=== PATIENT | female | born 1970 | race Caucasian/White ===

== ENCOUNTER 2020-10-30 15:25 | Emergency (ER) | payer BC, SELFPAY ==
[2020-10-30 15:27] VITALS: BP 98/74; PULSE 160; RESP 16; TEMP 36.6; O2SAT 98; BMI 32.1
[2020-10-30 15:30] VITALS: PULSE 128
--- NOTE | 2020-10-30 15:36 | NURSING ---
NO OLD EKGS
[2020-10-30] MEDS: Adenosine 6 MG/2 ML Syringe IV (15:40)
[2020-10-30] MEDS: 0.9% Normal Saline 1,000 ML 150 ML IV (15:40)
--- NOTE | 2020-10-30 15:42 | RAD_ITS ---
STUDY: X-RAY CHEST REASON FOR EXAM: Female, 50 years old. TACHYCARDIA TECHNIQUE: Frontal view COMPARISON: None. FINDINGS: The lungs are clear and expanded. There is no demonstrated pleural abnormality. Normal size heart. Normal mediastinum and rodrigo. Normal visualized pulmonary arteries. Normal visualized aortic arch and descending thoracic aorta. Normal visualized thoracic spine. Normal visualized ribs, clavicles, and shoulders. There is no demonstrated abnormality of the visualized soft tissue structures of the upper abdomen. RAD/Chest 1 View (Portable) IMPRESSION: Normal x-ray examination of the chest. Electronically Signed: Jairon Peck DO at 16:12 EST Tel [phone], Service support ,
--- NOTE | 2020-10-30 15:43 | EKG12_ITS ---
Test Reason : Blood Pressure : / mmHG Vent. Rate : 135 BPM Atrial Rate : 135 BPM P-R Int : 146 ms QRS Dur : 078 ms QT Int : 308 ms P-R-T Axes : 080 -42 056 degrees QTc Int : 462 ms Sinus tachycardia with occasional Premature ventricular complexes Left axis deviation Nonspecific ST abnormality Abnormal ECG Confirmed by SAMUEL MCCORMICK, VALENTE ([id number]), editor dictionary SIENNA XIONG ([id number]) on 11/05/2020 10:01:20 AM Referred By: AUBREY Confirmed By:RY BAKER MD
--- NOTE | 2020-10-30 15:43 | ED.VISSUMM ---
- ER Visit Summary Date of Service: 10/30/20 Chief Complaint: [Tachycardia] History of Present Illness: The patient is a 50 F [presents to the emergency department complaint tachycardia this around 12:30 PM today. Patient states that it came on suddenly. Patient states that she had similar episode about 15 years ago that she related to anxiety and had to go to the ER for it. Patient does not know she has a history of SVT. She denies any chest pain or significant shortness of breath. She denies recent travel or surgery. She denies recent illness. Patient otherwise has no medical history.] Physical Examination: [HEENT-PERRLA, EOMI. Cranial nerves II through XII grossly intact. TMs clear. Mucous membranes moist. No adenopathy. Cardiovascular-regular and tachycardic with a rate of 190. No murmurs auscultated. Lungs-clear to auscultation, chest wall stable without crepitus or subcu emphysema Abdomen-normoactive bowel sounds, soft, nontender, no rebound or rigidity, no peritoneal signs. Extremities-intact ?4, normal range of motion, normal pulses, atraumatic] Test Results: [EKG obtained showed SVT narrow complex with a rate of [address] changes. After conversion with adenosine her repeat EKG showed a sinus rhythm with a ventricular rate of 135 bpm with again with nonspecific ST changes noted and occasional PVC.] Emergency Department Course and Treatment: [ Established on arrival. EKG obtained which showed an SVT. Patient was given adenosine 6 mg IV and she converted to a sinus rhythm with a rate in the 120s.] CBC with differential obtained showed a white count 6.3, hemoglobin 14, hematocrit 43, placed 286. Chemistries unremarkable other than a slight depressed potassium of 3.2 for which I did give him 40 mEq of potassium chloride. Troponin was 0.039. Chest x-ray interpreted by myself as nothing acute. No evidence of pneumothorax and no evidence of infiltrate. Radiology in agreement. Treatment Plan: [Case was discussed with viscose department worker on-call who recommended metoprolol succinate 25 mg daily and follow-up with cardiology as outpatient.] Disposition: [Discharged home in stable condition. Patient advised to return if chest pain, increasing shortness of breath, persistent tachycardia, or condition should worsen anyway.] Impression: [Supraventricular tachycardia] This note was generated with Myfacepageation software. It may contain incorrect words, spelling, and punctuation that were not noted in review of the chart prior to signing
--- NOTE | 2020-10-30 15:49 | EKG12_ITS ---
Test Reason : Blood Pressure : / mmHG Vent. Rate : 187 BPM Atrial Rate : 061 BPM P-R Int : 000 ms QRS Dur : 080 ms QT Int : 262 ms P-R-T Axes : 000 -62 086 degrees QTc Int : 462 ms Supraventricular tachycardia Left axis deviation Abnormal ECG Confirmed by SAMUEL MCCORMICK, VALENTE ([id number]), editor department SIENNA XIONG ([id number]) on 11/05/2020 10:01:42 AM Referred By: AUBREY Confirmed By:RY BAKER MD
[2020-10-30 15:50] LABS: Absolute Lymphocyte Count 1.84 X10^3/uL (0.83-4.51); Absolute Neutrophil Count 3.7 X10^3/uL (2.0-7.7); Basophil# 0.04 X10^3/uL; Basophil% 0.6 % (0-1); Eosinophil# 0.18 X10^3/uL; Eosinophils% 2.8 % (0-5); Hematocrit 43.3 % (37-47); Hemoglobin 14.3 g/dL (12.0-15.0); Lymphocyte # 1.84 X10^3/ul (4.0); Mean Corpuscular Hgb 30.8 pg (27.0-32.0); Mean Corpuscular Volume 93.3 fL (81-99); Monocyte# 0.55 X10^3/uL; Monocyte% 8.7 % (0-10); NRBC Flagged by Analyzer 0 % (0-5); Neutrophil # 3.71 X10^3/uL (2.7-7.7); Neutrophil % 58.6 % (47-70); Platelet Count 286 K/mm3 (150-450); RBC Distribution Width SD 40.8 fl (35.1-43.9); Red Blood Count 4.64 M/mm3 (4.2-5.4); White Blood Count 6.3 K/mm3 (4.4-11.0)
[2020-10-30 16:07] LABS: Anion Gap 4 (5-15); BUN 13 mg/dL (7-18); BUN/Creat Ratio 11.6 RATIO (10-20); Calcium,Total 8.9 mg/dL (8.5-10.1); Chloride 107 mmol/L (98-107); Creatinine, Serum 1.12 mg/dL (0.55-1.02); EST Glomerular Filtration Rate 54 mL/min (>60); Est Glom Filt Rate - Afr Amer 66 mL/min (>60); Estimated Creatinine Clearance 44.34 ml/min; Glucose 155 mg/dL (74-106); Potassium 3.2 mmol/L (3.5-5.1); Sodium Level 142 mmol/L (136-145)
--- NOTE | 2020-10-30 16:25 | ED.DEP ---
ED Disposition - Plan for ED Patient: Instructions: ED Tachycardia: PAT Prescriptions: Metoprolol Succinate 25 mg PO DAILY #30 tab.er.24h Prescription Printed Referrals: Lyle Morales MD [STAFF PHYSICIAN] - 3-5 Days
[2020-10-30 16:41] VITALS: BP 110/67; PULSE 99; RESP 20; O2SAT 96
== END 2020-10-30 16:42 | disposition home or self-care (01) ==
LOC: ED 16:25
PROVIDERS: Emergency Provider Emergency Medicine; PCP Family Medicine
DX: I47.1 Supraventricular tachycardia (principal)
CPT/HCPCS: 71045; 80048; 84484; 85025; 93005; 96361; 96374; 99284; J7030; A4216; J0153

== ENCOUNTER → 2020-11-18 09:36 | Outpatient (CLI) | payer BC, SELFPAY ==
[2020-11-18 07:42] VITALS: BMI 31.9
[2020-11-18 10:59] LABS: Anion Gap 3 (5-15); BUN 12 mg/dL (7-18); BUN/Creat Ratio 13.7 RATIO (10-20); Chloride 104 mmol/L (98-107); Creatinine, Serum 0.88 mg/dL (0.55-1.02); EST Glomerular Filtration Rate 72 mL/min (>60); Est Glom Filt Rate - Afr Amer 87 mL/min (>60); Glucose 80 mg/dL (74-106); Sodium Level 139 mmol/L (136-145); Thyroid Stim Hormone (TSH) 2.16 uIU/mL (0.358-3.74)
== END ==
PROVIDERS: PCP Family Medicine; Referring Provider Internal Medicine Cardiovascular Disease; Visit Provider Internal Medicine Cardiovascular Disease
DX: Z86.79 Personal history of other diseases of the circulatory system (principal)
CPT/HCPCS: 36415; 80048; 84443

== ENCOUNTER → 2020-12-01 14:53 | Outpatient (CLI) | payer BC, SELFPAY ==
[2020-11-18 07:42] VITALS: BMI 31.9
--- NOTE | 2020-12-01 14:54 | ECHOD_ITS ---
Version 2 Reason For Study: ARRHYTHMIA Procedure This was a 2D Doppler, Color Flow transthoracic echocardiogram. Exam performed in department. Left Ventricle Normal LV size. Left ventricular systolic function is normal. The estimated ejection fraction is 55 %. Normal diastology for age. No regional wall motion abnormalities noted. Right Ventricle Normal RV size. Normal systolic function. Atria Normal left atrium. Normal right atrium. Mitral Valve Normal mitral valve. Mild (1+) eccentric mitral valve insufficiency. Tricuspid Valve Normal tricuspid valve. Mild (1+) tricuspid valve insufficiency. Pulmonary artery systolic pressure is 26 mmHg. Aortic Valve Normal aortic valve. Trisinus/trileaflet aortic valve. Pulmonic Valve Normal pulmonic valve. Great Vessels Normal aortic root. The pulmonary artery is normal size. Normal inferior vena cava. Pericardium/Pleural No pericardial effusion. MMode/2D Measurements & Calculations LVIDd: 4.4 cm IVSd: 0.64 cm Ao root diam: 2.8 cm LVIDs: 2.9 cm LVPWd: 0.62 cm RVDd: 3.1 cm FS: 35.2 % LAV(MOD-bp): 47.5 ml EDV(MOD-sp4): 73.2 ml EDV(MOD-sp2): 84.0 ml LAV(MOD-bp) Indexed: 26.6 ml/m2 ESV(MOD-sp4): 32.9 ml EF(MOD-sp2): 56.2 % LAV(MOD-sp2): 50.4 ml EF(MOD-sp4): 55.1 % LAV(MOD-sp4): 39.6 ml SV(MOD-sp4): 40.3 ml SV(MOD-sp2): 47.2 ml LA A4 area: 15.7 cm2 LA dimension(2D): 3.1 cm RA A4 area: 9.3 cm2 Time Measurements MV dec time: 0.19 sec Doppler Measurements & Calculations MV E max willi: 91.4 cm/sec Lat Peak E' Willi: 8.6 cm/sec Med Peak E' Willi: 9.3 cm/sec MV A max willi: 68.4 cm/sec E/E' lat: 10.7 E/E' med: 9.8 MV E/A: 1.3 Ao V2 max: 131.0 cm/sec LV V1 max: 70.0 cm/sec PA V2 max: 78.5 cm/sec Ao max P.9 mmHg LV V1 max P.0 mmHg TR max willi: 236.5 cm/sec TR max P.4 mmHg Interpretation Summary Normal LV size. Left ventricular systolic function is normal. The estimated ejection fraction is 55 %. Normal diastology for age. Ordering Physician: Lyle Morales Referring Physician: NATALI HERNANDEZ Performed By: Itzel Coy, DENNYS, RVT
== END ==
PROVIDERS: PCP Family Medicine; Referring Provider Internal Medicine Cardiovascular Disease; Visit Provider Internal Medicine Cardiovascular Disease
DX: I49.8 Other specified cardiac arrhythmias (principal); Z86.79 Personal history of other diseases of the circulatory system
CPT/HCPCS: 93306

== ENCOUNTER → 2021-05-07 11:45 | Outpatient (CLI) | payer BC, SELFPAY ==
[2021-03-30 09:24] VITALS: BMI 31.9
--- NOTE | 2021-05-07 11:50 | RAD_ITS ---
STUDY: X-RAY - LUMBAR SPINE REASON FOR EXAM: Female, 51 years old. BACK PAIN TECHNIQUE: 3 view(s) of the lumbar spine were obtained. COMPARISON: None FINDINGS: Lumbar spine is intact and aligned with mild degenerative changes. These are age appropriate. SI joints are normal. Mineralization is normal. RAD/Lumbar Spine 2 or 3 Views IMPRESSION: Unremarkable age-appropriate lumbar spine. Electronically Signed: Samuel Mckoy MD at 20:02 EDT Tel , Service support ,
== END ==
PROVIDERS: PCP Family Medicine
DX: M54.16 Radiculopathy, lumbar region (principal)
CPT/HCPCS: 72100

== ENCOUNTER 2021-06-24 17:00 | Outpatient (RCR) | payer BC, SELFPAY ==
[2021-03-30 09:24] VITALS: BMI 31.9
--- NOTE | 2021-06-15 07:46 | HP.PTEVAL_ITS ---
Patient's Visit Information ALLA KIMBALL is a 51 year old F referred to Physical Therapy by Dr. Jeronimo Howell MD with a diagnosis of Lumbar Pain. Date of Evaluation: 06/15/21 Physical Therapist: Chasity Montilla DPT - Visit Plan Frequency: 2x /Week Duration: 4 Weeks Plan: Focus on neutral spine- core strength/stabilization. HEP Given IE: TA contraction, bridge, hip adduction with ball, hip abduction with GTB, postural education - Subjective Patient reports that she has had back pain since she was 17 years old- started after traveling and stretched across the bed and felt a pop now it comes and goes- masks with Tylenol and is tired of dealing with it. Wants to get some exercises to increase core strength and decrease pain. She was told DDD started when she was younger- has had x-rays and showed typical degeneration. She now has it more consistently. She reports that normally its on the left side but today its across the whole low back area. She works for [employer] so she is sitting and then getting up/down- no lifting at work. Sits most of the day at a computer/phone. Worst: 5/10 Agg:sitting for long periods of time or standing for long periods of time. Feels like everything just knots up. Describes the p ain as dull and achy. Does have radiating pain down the left LE- travels to the knee. Desribes N/T into the leg- but not to the toes. No episodes of knee buckling or giving out. Eases: tries to stretch- knees to chest- which helps a little bit. Best: 0/10. Sleep: disturbed so she has to flip side to side. No loss or change in bowel or bladder. Does not exercise on a normal basis- hopes this is going to be her jump start. No injections, chiropractor, massage therapy. PMHX/Meds: see scanned in chart. - Objective Posture: FH, RS-does sit at the edge of the chair to promote better posture- can correct with verbal and tactile cues but does not maintain. Gait: good arm swing and trunk rotation. ROM: WFL in lumbar and LE without pain. SLS: weight shift but requires UE A- moderate pelvic drop bilaterally. HR/TR: able with UE A. Palpation: tender to PA glides in lumbar spine, tender along gluts bilateral. Strength: Core: fair, Scap: fair, Hip: 4/5 throughout, Knee: 5/5, Ankle: 5/5. Special Test: Slump: negative, Dural Signs: negative, Pelvic Alignment: WFL, KRISHNA: negative- Extension: makes symptoms worse, flexion: no change in symptoms - Balance/Special Test Scores Oswestry Low Back Score: 6 - Goals Goal 1:: Patient will be I with HEP and progression Goal Time Frame: 4-6 Weeks Goal 2:: Patient will maintain proper posture t/o tx session to demo increased core s/s. Goal Time Frame: 4-6 Weeks Goal 3:: Patient will report no more than 2/10 pain for 1 week Goal Time Frame: 4-6 Weeks Goal 4:: Patient will have no radiating s/s down the left LE Goal Time Frame: 4-6 Weeks - Rehabilitation Potential Physical Therapy Diagnosis: Patient presents with hypomobility- she has decreased LE and core strength/stabilization, flexibility and muscular endurance leading to poor posture and increased pain with ADL's. Rehabilitation Potential: Fair - Anticipated Interventions Patient/Client Instruction: Educate patient on: Benefits of Fitness Program Therapeutic Exercise to Include: Strength training, Endurance training, Balance training, Body mechanics, Postural training, Flexibilty training, Neuromotor development, Dynamic Lumbar Stabilization, Mandie Exercises, Scapular Strength/Stabilization For the Purpose of:: To improve muscle performance and motor function TENS: Yes Cryotherapy (ice pack, ice massage): Yes Thermo therapy (hot pack): Yes Ultrasound (thermal/non thermal): Yes Thank you for the opportunity to evaluate your patient. For Medicare and Medicare HMO plans, please review the plan of care and approve it. It will need to be FAXED BACK to us at [phone] for Medicare purposes. For Medicare only, by signing this I certify the plan of care. Please let me know if there are questions or concerns regarding this plan of care. Physician Signature: Date:
--- NOTE | 2021-09-06 08:11 | HP.PT.NRP ---
ALLA KIMBALL was seen in my office for initial evaluation on 06/15/21. The following Plan of Care was established for this patient: Initial Frequency: 2x /Week Initial Duration: 4 Weeks Patient/Client Instruction: Educate patient on: Benefits of Fitness Program Therapeutic Exercise to Include: Strength training, Endurance training, Balance training, Body mechanics, Postural training, Flexibilty training, Neuromotor development, Dynamic Lumbar Stabilization, Mandie Exercises, Scapular Strength/Stabilization For the Purpose of:: To improve muscle performance and motor function TENS: Yes Cryotherapy (ice pack, ice massage): Yes Thermo therapy (hot pack): Yes Ultrasound (thermal/non thermal): Yes This patient was last seen in our office . Pertinent comments regarding their Physical therapy will appear below: Patient has not attended PT in over 4 weeks and is appropriate for discharge- return to MD for further evaluation as needed. At this point I will be discontinuing this patient from physical therapy. I would be happy to see this patient again in the future if found appropriate by the physician. Thank you! Chasity Montilla DPT Balance/Gait/Functional tests - Balance/Special Test Scores Oswestry Low Back Score: 6
== END 2021-06-24 19:00 | disposition home or self-care (01) ==
LOC: PT 17:00
PROVIDERS: PCP Family Medicine; Referring Provider Family Medicine; Visit Provider Family Medicine
DX: M54.5 Low back pain (principal)
CPT/HCPCS: 97110; 97162

== ENCOUNTER 2021-12-15 07:16 | Outpatient (CLI) | payer BC, SELFPAY ==
--- NOTE | 2021-12-15 07:20 | RAD_ITS ---
EXAM: XR CHEST, 2 VIEWS : 1970 CLINICAL INDICATION: chest pain TECHNIQUE: Frontal and lateral views of the chest. This report was created using [employer] report generation technology. COMPARISON: 10/30/2020 FINDINGS: LUNGS AND PLEURAL SPACES: On the lateral view there is patchy airspace disease which may be within the lingula. No effusions are identified. No pneumothorax. HEART: Unremarkable. Cardiac silhouette not enlarged. MEDIASTINUM: Central airways and mediastinal contour are unremarkable. BONES/JOINTS: Unremarkable. SOFT TISSUES: Unremarkable. RAD/Chest PA and Lateral IMPRESSION: Airspace disease seen in the lateral view anteriorly which may be within the lingula. No effusions are identified. at 0208 Reported and signed by: Kushal Barnard MD Electronically Signed: Kushal Barnard MD at 2:07 EST ,
[2021-12-15 10:30] LABS: Absolute Lymphocyte Count 1.23 X10^3/uL (0.83-4.51); Absolute Neutrophil Count 1.8 X10^3/uL (2.0-7.7); Basophil# 0.04 X10^3/uL; Basophil% 1.1 % (0-1); Eosinophil# 0.15 X10^3/uL; Eosinophils% 4.1 % (0-5); Hematocrit 40.9 % (37-47); Hemoglobin 13.8 g/dL (12.0-15.0); Lymphocyte # 1.23 X10^3/ul (0.83-4.51); Mean Corp Hgb Conc 33.7 g/dL (32-36); Mean Corpuscular Hgb 30.9 pg (27.0-32.0); Mean Corpuscular Volume 91.5 fL (81-99); Mean Platelet Vol. 10.5 fl (6.2-12.0); Monocyte# 0.38 X10^3/uL; Monocyte% 10.5 % (0-10); NRBC Flagged by Analyzer 0 % (0-5); Neutrophil # 1.82 X10^3/uL (2.7-7.7); Neutrophil % 50.3 % (47-70); Platelet Count 265 K/mm3 (150-450); RBC Distribution Width CV 12.1 % (11.6-14.6); RBC Distribution Width SD 40.4 fl (35.1-43.9); Red Blood Count 4.47 M/mm3 (4.2-5.4); White Blood Count 3.6 K/mm3 (4.4-11.0)
[2021-12-15 11:07] LABS: Anion Gap 6 (5-15); BUN 12 mg/dL (7-18); Calcium,Total 9.2 mg/dL (8.5-10.1); Chloride 104 mmol/L (98-107); Creatinine, Serum 0.86 mg/dL (0.55-1.02); EST Glomerular Filtration Rate 73 mL/min (>60); Est Glom Filt Rate - Afr Amer 89 mL/min (>60); Glucose 81 mg/dL (74-106); Potassium 3.8 mmol/L (3.5-5.1); Sodium Level 138 mmol/L (136-145)
== END 2021-12-15 23:59 | disposition home or self-care (01) ==
LOC: MTLAB 07:18
PROVIDERS: PCP Family Medicine; Referring Provider Internal Medicine Cardiovascular Disease; Visit Provider Internal Medicine Cardiovascular Disease
DX: Z86.79 Personal history of other diseases of the circulatory system (principal)
CPT/HCPCS: 36415; 71046; 80048; 85025

== ENCOUNTER 2021-12-23 07:28 | Day surgery (SDC) | payer BC, SELFPAY ==
[2021-12-22 13:20] VITALS: BMI 31.8
--- NOTE | 2021-12-23 11:07 | PCM.OP.BLANK ---
Operative Report Date of Procedure: 12/23/21 The patient underwent EP testing today for narrow complex tachycardia. There was normal SA, AV and infranodal conduction. There was AV kendrick jump and echo beat. There is no inducible tachycardia. There is no preexcitation. There is decremental retrograde conduction. During Isuprel at 3 there is no inducible tachycardia however during 5ugm there was a single induction of a short RP tachycardia with a VA interval at the his of 50 ms. Ventricular pacing resulted in termination. The transition zone required multiple pacing beats thus the most likely diagnosis, based upon onset being dependent upon a long AH, is typical AV kendrick reentrant tachycardia. Detailed mapping was completed of the AV junction in the coronary sinus os region as well as the triangle of Colon. Multiple radiofrequency ablations were delivered near the posterior region of the coronary sinus os with occasional junctional beats. There is no AV or VA block. Post ablation with and without Isuprel there is normal SA, AV, HV, and no inducible tachycardia. In summary patient had successful slow pathway ablation for management of typical AV node reentrant tachycardia. Primary limitation is that the preprocedure induction of the tachycardia was only 1 time despite multiple testing. Thus the assessment of the efficacy of the ablation lesions by doing post procedure testing is limited. Plan is to discharge home with clinical follow-up.
== END 2021-12-23 23:59 | disposition home or self-care (01) ==
LOC: CLSP 07:32
PROVIDERS: PCP Family Medicine; Referring Provider Internal Medicine Cardiovascular Disease; Visit Provider Internal Medicine Cardiovascular Disease
DX: R00.0 Tachycardia, unspecified (principal); R00.2 Palpitations; E66.9 Obesity, unspecified; F41.1 Generalized anxiety disorder; Z79.899 Other long term (current) drug therapy
CPT/HCPCS: 93609; 93653; 99152; 99153; C1730; C1733; C1894

== ENCOUNTER → 2022-07-21 | Outpatient (CLI) | payer BC, SELFPAY ==
[2022-07-21 10:38] LABS: AST(SGOT) 22 U/L (15-37); Alanine Aminotransfer ALT/SGPT 24 U/L (13-56); Albumin, Serum 3.6 g/dL (3.2-5.0); Alkaline Phosphatase 59 U/L (45-117); Anion Gap 6 (5-15); BUN 15 mg/dL (7-18); BUN/Creat Ratio 15.5 RATIO (10-20); Calcium,Total 9.3 mg/dL (8.5-10.1); Chloride 103 mmol/L (98-107); Cholesterol 191 mg/dL (200); Creatinine, Serum 0.97 mg/dL (0.55-1.02); EST Glomerular Filtration Rate 64 mL/min (>60); Est Glom Filt Rate - Afr Amer 77 mL/min (>60); Globulin 3.6 g/dL (2.2-4.2); Glucose 87 mg/dL (74-106); High Density Lipoprotein 65 mg/dL; Protein, Total 7.2 g/dL (6.4-8.2); Sodium Level 138 mmol/L (136-145); Triglycerides 50 mg/dL; Very Low Density Lipoprotein 10 mg/dL (5-40)
== END | disposition home or self-care (01) ==
PROVIDERS: PCP Family Medicine; Referring Provider Family Medicine; Visit Provider Family Medicine
DX: E78.00 Pure hypercholesterolemia, unspecified (principal)
CPT/HCPCS: 36415; 80053; 80061

== ENCOUNTER → 2022-09-08 | Outpatient (CLI) | payer BC, SELFPAY ==
--- NOTE | 2022-09-08 07:38 | BI_ITS ---
MAMMOGRAPHY - BILATERAL SCREENING REASON FOR EXAM: Female, 52 years old. Routine annual screening examination. PERTINENT HISTORY: Non-contributory. TECHNIQUE: Digital bilateral breast nancy (3D mammographic acquisition) in the CC and MLO projections. 2-D mediolateral oblique (MLO) and craniocaudad (CC) views of both breasts were obtained. CAD: Full Field Digital Mammography with Computer Added Detection was performed. COMPARISON: Comparison is made with prior outside examination dated 08/27/2019. FINDINGS: Breast Composition: There are scattered areas of fibroglandular density. There are no dominant masses or suspicious calcifications. No other significant abnormalities are identified. There has been no significant change since the prior study. BI/SCRN MAMM (CAD)W/NANCY BILAT IMPRESSION: Stable bilateral screening mammogram. Yearly follow-up mammogram recommended. (A) ASSESSMENT CATEGORY: BIRADS Category 1: Negative. A letter regarding these results will be sent to the patient by the facility within 30 days. Approximately 10% of breast cancers are not detected by mammography. A normal mammogram should not delay biopsy of a clinically suspicious abnormality. [id number] Electronically Signed: Paco Henriquez MD at 8:29 EDT ,
== END | disposition home or self-care (01) ==
LOC: OPBI 07:35
PROVIDERS: PCP Family Medicine
DX: Z12.31 Encounter for screening mammogram for malignant neoplasm of breast (principal)
CPT/HCPCS: 77063; 77067

== ENCOUNTER → 2023-11-16 | Outpatient (CLI) | payer BC, SELFPAY ==
--- NOTE | 2023-11-16 09:37 | RAD_ITS ---
STUDY: X-RAY CHEST REASON FOR EXAM: Female, 53 years old. COUGH TECHNIQUE: PA and lateral COMPARISON: December 15, 2021 FINDINGS: There is interstitial scarring in the right middle lobe not changed significantly since previous study.. No focal infiltration. There is no demonstrated pleural abnormality. Normal size heart. Normal mediastinum and rodrigo. Normal visualized pulmonary arteries. Normal visualized aortic arch and descending thoracic aorta. Normal visualized thoracic spine. Normal visualized ribs, clavicles, and shoulders. There is no demonstrated abnormality of the visualized soft tissue structures of the upper abdomen. RAD/Chest PA and Lateral IMPRESSION: Chronic scarring in the right middle lobe. No acute cardiopulmonary pathology Electronically Signed: Damion Wu MD at 17:09 EST ,
== END | disposition home or self-care (01) ==
LOC: MTRAD 09:35
PROVIDERS: PCP Family Medicine
DX: R05.3 Chronic cough (principal)
CPT/HCPCS: 71046

== ENCOUNTER → 2024-01-24 | Outpatient (CLI) | payer BC, SELFPAY ==
--- NOTE | 2024-01-24 16:53 | CT_ITS ---
STUDY: CT CHEST WITHOUT CONTRAST REASON FOR EXAM: Female, 54 years old. Chronic cough RADIATION DOSAGE (If Supplied By Facility): CTDIvol = ( 9.82 ) mGy, DLP = ( 340.95 ) mGycm TECHNIQUE: Transaxial imaging was performed without the administration of intravenous contrast material. Individualized dose optimization techniques were used for this CT. COMPARISON: Comparison is made with prior chest radiograph dated November 16, 2023. FINDINGS: CHEST Mild volume loss in the right middle lobe with increased markings abutting the right minor fissure. This may represent scarring. No mass lesion or consolidation is seen. There is no demonstrated pleural abnormality. There are calcifications of the coronary arteries. Normal mediastinum. Normal hilar regions. Normal unenhanced pulmonary arteries. Minimal plaque formation of the aortic arch. There are mild degenerative changes of the thoracic spine. There is no demonstrated abnormality of the visualized upper abdomen. CT/Chest without Contrast IMPRESSION: Mild volume loss in the right middle lobe with findings suggestive of scarring. Coronary artery calcification. Electronically Signed: Paco Henriquez MD at 14:56 EDT ,
== END | disposition home or self-care (01) ==
PROVIDERS: PCP Family Medicine; Referring Provider Family Medicine; Visit Provider Family Medicine
DX: R05.3 Chronic cough (principal)
CPT/HCPCS: 71250

== ENCOUNTER → 2024-02-12 | Outpatient (CLI) | payer BC, SELFPAY ==
[2024-02-12 10:46] LABS: Absolute Lymphocyte Count 1.12 X10^3/uL (0.83-4.51); Absolute Neutrophil Count 2.1 X10^3/uL (2.0-7.7); Basophil# 0.06 X10^3/uL; Basophil% 1.5 % (0-1); Eosinophil# 0.24 X10^3/uL; Eosinophils% 6.2 % (0-5); Hematocrit 41.7 % (37-47); Hemoglobin 14.1 g/dL (12.0-15.0); Lymphocyte # 1.12 X10^3/ul (0.83-4.51); Lymphocyte % 28.7 % (19-41); Mean Corp Hgb Conc 33.8 g/dL (32-36); Mean Corpuscular Hgb 30.7 pg (27.0-32.0); Mean Corpuscular Volume 90.8 fL (81-99); Mean Platelet Vol. 10.6 fl (6.2-12.0); Monocyte# 0.38 X10^3/uL; Monocyte% 9.7 % (0-10); NRBC Flagged by Analyzer 0 % (0-5); Neutrophil # 2.09 X10^3/uL (2.7-7.7); Neutrophil % 53.6 % (47-70); Platelet Count 263 K/mm3 (150-450); RBC Distribution Width CV 11.9 % (11.6-14.6); RBC Distribution Width SD 39.6 fl (35.1-43.9); Red Blood Count 4.59 M/mm3 (4.2-5.4); White Blood Count 3.9 K/mm3 (4.4-11.0)
[2024-02-12 11:04] LABS: ALB/GLOB Ratio 1.1 RATIO (0.9-2.4); AST(SGOT) 27 U/L (15-37); Alanine Aminotransfer ALT/SGPT 28 U/L (13-56); Albumin, Serum 3.6 g/dL (3.2-5.0); Alkaline Phosphatase 52 U/L (45-117); Anion Gap 5 (5-15); BUN 13 mg/dL (7-18); BUN/Creat Ratio 13.7 RATIO (10-20); Chloride 107 mmol/L (98-107); Cholesterol 225 mg/dL (200); Creatinine, Serum 0.95 mg/dL (0.55-1.02); EST Glomerular Filtration Rate 65 mL/min (>60); Est Glom Filt Rate - Afr Amer 78 mL/min (>60); Globulin 3.4 g/dL (2.2-4.2); Glucose 92 mg/dL (74-106); High Density Lipoprotein 72 mg/dL; Potassium 3.6 mmol/L (3.5-5.1); Sodium Level 141 mmol/L (136-145); Triglycerides 75 mg/dL; Very Low Density Lipoprotein 15 mg/dL (5-40)
== END | disposition home or self-care (01) ==
PROVIDERS: PCP Family Medicine; Referring Provider Family Medicine; Visit Provider Family Medicine
DX: I25.10 Atherosclerotic heart disease of native coronary artery without angina pectoris (principal); R05.3 Chronic cough
CPT/HCPCS: 36415; 80053; 80061; 85025

== ENCOUNTER → 2024-12-05 | Outpatient (CLI) | payer BC, SELFPAY ==
--- NOTE | 2024-12-05 12:35 | BI_ITS ---
PROCEDURE: SCRN MAMM (CAD)W/NANCY BILAT REASON FOR EXAM: F, Age 54 y/o, routine annual mammogram. No family history. TECHNIQUE: Bilateral screening digital breast tomosynthesis with 2D and 3D images. Computer aided detection. COMPARISON: Prior exam(s) dating back to September 08, 2022.. FINDINGS: There are scattered areas of fibroglandular density. Stable examination. No suspicious masses, areas of developing architectural distortion, or suspicious calcifications. BI/SCRN MAMM (CAD)W/NANCY BILAT IMPRESSION: BI-RADS 1: NEGATIVE. RECOMMEND ANNUAL MAMMOGRAPHIC SCREENING. Follow-up code: Routine Follow-up The patient will be notified of the results by letter. Reading Location: [place] [id number]
== END | disposition home or self-care (01) ==
LOC: OPBI 12:33
PROVIDERS: PCP Family Medicine; Referring Provider Family Medicine; Visit Provider Family Medicine
DX: Z12.31 Encounter for screening mammogram for malignant neoplasm of breast (principal)
CPT/HCPCS: 77063; 77067

== ENCOUNTER → 2025-01-16 | Outpatient (CLI) | payer BC, SELFPAY ==
[2025-01-16 12:16] LABS: ALB/GLOB Ratio 1.6 RATIO (0.9-2.4); AST(SGOT) 27 U/L (<=31); Alanine Aminotransfer ALT/SGPT 20 U/L (<=34); Albumin, Serum 4.3 g/dL (3.5-5.0); Alkaline Phosphatase 53 U/L (35-104); Anion Gap 11 (5-15); BUN 18 mg/dL (4-19); BUN/Creat Ratio 18.3 RATIO (10-20); Calcium,Total 9.4 mg/dL (7.6-11.0); Carbon Dioxide 24.8 mmol/L (21.0-32.0); Chloride 103 mmol/L (98-108); Cholesterol 172 mg/dL (<=200); Creatinine, Serum 0.96 mg/dL (0.70-1.20); EST Glomerular Filtration Rate 70 (>60); Globulin 2.6 g/dL (2.2-4.2); Glucose 91 mg/dL (70-99); High Density Lipoprotein 72 mg/dL; Low Density Lipoprotein Calc. 90 mg/dL; Potassium 4.2 mmol/L (3.3-5.1); Protein, Total 6.9 g/dL (5.9-8.4); Sodium Level 139 mmol/L (133-145); Total Bilirubin 0.45 mg/dL (0.00-1.30); Triglycerides 50 mg/dL; Very Low Density Lipoprotein 10 mg/dL (5-40)
== END | disposition home or self-care (01) ==
LOC: MTLAB 07:53
PROVIDERS: PCP Family Medicine; Referring Provider Family Medicine; Visit Provider Family Medicine
DX: E78.00 Pure hypercholesterolemia, unspecified (principal)
CPT/HCPCS: 36415; 80053; 80061

== ENCOUNTER → 2025-02-06 | Outpatient (CLI) | payer BC, SELFPAY | END | disposition home or self-care (01) | LOC: PSN 08:06 | PROVIDERS: PCP Family Medicine; Referring Provider Nurse Practitioner Acute Care; Visit Provider Nurse Practitioner Acute Care | DX: R05.9 Cough, unspecified (principal) | CPT/HCPCS: 94060; 94726; 94729 ==

== ENCOUNTER → 2025-02-17 | Outpatient (CLI) | payer BC, SELFPAY ==
[2025-02-17 11:23] LABS: Absolute Lymphocyte Count 1.04 X10^3/uL (0.83-4.51); Absolute Neutrophil Count 1.9 X10^3/uL (2.0-7.7); Basophil# 0.05 X10^3/uL; Basophil% 1.4 % (0-1); Eosinophil# 0.13 X10^3/uL; Eosinophils% 3.7 % (0-5); Hematocrit 39.7 % (37-47); Hemoglobin 13.6 g/dL (12.0-15.0); Lymphocyte # 1.04 X10^3/ul (0.83-4.51); Lymphocyte % 29.8 % (19-41); Mean Corp Hgb Conc 34.3 g/dL (32-36); Mean Corpuscular Hgb 31.1 pg (27.0-32.0); Mean Corpuscular Volume 90.8 fL (81-99); Mean Platelet Vol. 10.4 fl (6.2-12.0); Monocyte# 0.36 X10^3/uL; Monocyte% 10.3 % (0-10); NRBC Flagged by Analyzer 0 % (0-5); Neutrophil # 1.91 X10^3/uL (2.7-7.7); Neutrophil % 54.8 % (47-70); Platelet Count 239 K/mm3 (150-450); RBC Distribution Width CV 11.9 % (11.6-14.6); RBC Distribution Width SD 39.8 fl (35.1-43.9); Red Blood Count 4.37 M/mm3 (4.2-5.4); White Blood Count 3.5 K/mm3 (4.4-11.0)
== END | disposition home or self-care (01) ==
LOC: MTLAB 08:09
PROVIDERS: PCP Family Medicine; Referring Provider Nurse Practitioner Acute Care; Visit Provider Nurse Practitioner Acute Care
DX: J30.9 Allergic rhinitis, unspecified (principal); R05.9 Cough, unspecified
CPT/HCPCS: 36415; 82785; 85025; 86003; 86037; 86606

== ENCOUNTER 2025-10-20 07:05 | Day surgery (SDC) | payer OTHER, SELFPAY ==
--- NOTE | 2025-10-17 15:33 | PAT.ANESEVAL ---
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 When Was Last Pacemaker Check QUESTION #4 FULL TEXT: You/Your Family Experience fever (hyperthermia) with Anesthesia Last Oral Intake Last Oral intake: Last Oral Intake NPO since Meds taken in AM with sips of water? 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 Female Yes 10/17/25 09:51 HX of Motion Sickness No 10/17/25 09:51 HX of N/V After Surgery No 10/17/25 09:51 Non-Smoker Yes 10/17/25 09:51 Duration of Surgery greater No 10/17/25 09:51 than 60 minutes Number of Risk Factors 2 10/17/25 09:51 PONV Score Moderate Risk 10/17/25 09:51 Height & Weight Height & Weight: Anesthesia: Height & Weight Height 5 ft 2 in 09/04/25 15:00 Respiratory Assessment Respiratory Assessment - regional sales representative: Respiratory Tract Infection Hx - regional sales representative Hx Respiratory Tract Infection No 10/17/25 09:51 STOP Sleep Apnea STOP Sleep Apnea - regional sales representative: STOP Sleep Apnea - regional sales representative Hx Hypertension No 10/17/25 09:51 Hx Sleep Apnea No 10/17/25 09:51 CPAP BIPAP Do you snore loudly (louder No 10/17/25 09:51 than talking or can be heard Do you often feel tired/ No 10/17/25 09:51 fatigued/ sleepy during daytime? Has anyone observed you stop No 10/17/25 09:51 breathing during sleep? STOP Results Negative 10/17/25 09:51 QUESTION #5 FULL TEXT : Do you snore loudly (louder than talking or can be heard through closed doors)? 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 Specify any problems Hx of Preganancy in last 3 No 10/17/25 09:51 Months Nurse Filling Out Transfusion VCHRISTIN 10/17/25 09:51 & Questions: Date: 10/17/25 10/17/25 09:51 Time: 09:53 10/17/25 09:51 Patient unable to answer at this time (ie. confused, unrespo /Reproduction History /Reproductive History - regional sales representative: /Reproductive Hx- regional sales representative Hx Now No 10/17/25 09:51 Gestational Age (in weeks): EDC: Hx Hx Para Hx Section SAB No 10/17/25 09:51 Does the father of the baby or his family experience fever w Father of the baby Malignant Hypertension history comment [facility] Medical History (Updated 10/17/25 @ 09:51 by Leila Ibarra) Wears contact lenses Wears glasses Alcohol use High cholesterol Non-smoker History of echocardiogram Cardiology follow-up encounter History of irregular heartbeat Hypercholesterolemia SVT (supraventricular tachycardia) Encounter for screening for COVID-19 URI (upper respiratory infection) Colon polyp Obesity LYNNE (generalized anxiety disorder) Home Medications ?Medication ?Instructions ?Recorded ?Last Taken ?Type citalopram 40 mg tablet 40 mg PO DAILY 10/30/20 Unknown History cetirizine 10 mg tablet (Zyrtec) 10 mg PO DAILY 11/16/20 Unknown History cholecalciferol (vitamin D3) 50 50 mcg PO DAILY 11/16/20 Unknown History mcg (2,000 unit) capsule [id number] 8 mg-folic 400 1 tab PO DAILY 11/16/20 Unknown History mcg-K 50 mcg-lutein 300 mcg tablet (Centrum Silver Women) albuterol sulfate 90 mcg/actuation 2 puff inhalation Q6-8H PRN 01/23/25 Unknown History aerosol inhaler shortness of breath or wheezing rosuvastatin 5 mg tablet 5 mg PO QHS 01/23/25 Unknown History fluticasone furoate 200 1 inh inhalation QDAY #30 ea 09/26/25 Unknown Rx mcg/actuation blister powder for inhalation (Arnuity Ellipta) Allergy/AdvReac Type Severity Reaction Status Date / Time No Known Allergies Allergy Verified 10/17/25 09:46 Family History Other COPD (chronic obstructive pulmonary disease) Diabetes Hypertension Surgical History History of radiofrequency ablation procedure for cardiac arrhythmia (12/23/21) History of abdominal hysterectomy Social History pets and animals: Yes pets and animals: dog(s) Smoking Status: Never smoker Electronic Cigarette Use: not used alcohol intake: current alcohol intake frequency: a few times a month substance use type: does not use what type of physical activity do you participate in: none Audit: Pertinent Findings Pertinent Findings EKG Perinent findings: 02/15/2022. Sinus rhythm. RSR V1. Nondiagnostic. Echo (EF%) pertinent findings: 12/01/2020. Normal size function EF 55%. Consult pertinent findings: Cardiology 03/09/2023. History of SVT. Successful slow pathway ablation. 12/23/2021. Continue current medications. Recommendation Anesthesia Recommendation Anesthesia recommendation: OPTIMIZED for anesthesia
[2025-10-20] VITALS (8 sets, daily range): BP systolic 113–152; BP diastolic 64–95; PULSE 64–81; RESP 16; TEMP 36.1–36.6; O2SAT 92–99; BMI 31.4
--- OUTSIDE RECORDS SUMMARY | 2025-10-20 07:25 | XMS RPT_ITS | CCD ---
Author Organization [facility] CliniSyin Care Team Providers Care Clinical Lab Assistant Name Role Phone Jeronimo Howell Primary Care Provider Dr. Jeronimo Howell Primary Care Provider Dr. Jeronimo Howell Referring Provider EDUARDO Cleary Attending Provider Dr. Jeronimo Howell Primary Care Provider Dr. Jeronimo Howell Referring Provider EDUARDO Cleary Attending Provider Dr. Jeronimo Howell MD Primary Care Provider Dr. Jeronimo Howell MD Attending Provider [phone] Dr. Jeronimo Howell MD Referring Provider Arnoldo STORE CLERK CHECKER-CRupinder Attending Provider Arnoldo STORE CLERK CHECKER-CRupinder Referring Provider Dr. Jeronimo Howell MD Primary Care Provider Dr. Jeronimo Howell MD Attending Provider Dr. Jeronimo Howell MD Referring Provider Health, Employee Attending Provider Assessment, Health Risk Attending Provider Unava kristopher Howell MD, Dr. Decker Primary Care Physician Dr. Jeronimo Howell MD Referring Provider Arnoldo STORE CLERK CHECKER-C, Rupinder Attending Physician Arnoldo STORE CLERK CHECKER, Rupinder Referring Unavailable Finneran, Jeronimo Primary Care Unavailable Arnoldo STORE CLERK CHECKER, Rupinder Attending Unavailable Estella Asif Attending Unavailable Finneran, Jeronimo Referring Unavailable Finneran, Jeronimo Primary Care Unavailable Finneran, Jeronimo Primary Care Unavailable Finneran, Jeronimo Attending Unavailable Finneran, Jeronimo Referring Unavailable Finneran, Jeronimo Primary Care Unavailable Finneran, Jeronimo Attending Unavailable Finneran, Jeronimo Referring Unavailable Mclaughlin STORE CLERK CHECKER, Rupinder Referring Unavailable Finneran, Jeronimo Primary Care Unavailable Arnoldo STORE CLERK CHECKER, Rupinder Attending Unavailable Estella Asif Attending Unavailable Finneran, Jeronimo Primary Care Unavailable Mclaughlin STORE CLERK CHECKER, Rupinder Attending Unavailable Finneran, Jeronimo Referring Unavailable Finneran, Jeronimo Primary Care Unavailable Finneran, Jeronimo Primary Care Unavailable Arnoldo STORE CLERK CHECKER, Rupinder Attending Unavailable Finneran, Jeronimo Referring Unavailable Dirk Joyce Attending Unavailable Arnoldo STORE CLERK CHECKER, Rupinder Attending Unavailable Finneran, Jeronimo Referring Unavailable Finneran, Jeronimo Primary Care Unavailable Finneran, Jeronimo Primary Care Unavailable Arnoldo STORE CLERK CHECKER, Rupinder Attending Unavailable Finneran, Jeronimo Referring Unavailable Finneran, Jeronimo Primary Care Unavailable Assessment, Health Risk Attending Unavaila ble Medications Current Medications Medication Drug Class(es) Dates Sig (Normalized) Sig (Original) [id number] 200 actuat albuterol 0.09 mg/actuat metered dose inhaler (5 sources) beta2-Adrenergic Agonist Start: 01-23-2025 Albuterol Sulfate 90 mcg/actuation HFA aerosol inhaler Active 2 NMA INHALATION EVERY 6-8 HOURS as needed January 23, 2025 12:00am Complies with drug therapy Budesonide (4 sources) Corticosteroid Start: 08-04-2025 take 180 ug by inhalation twice daily Start: 07-31-2025 End: 08-04-2025 take 180 ug by inhalation twice daily Budesonide (Pulmicort Flexhaler) 180 mcg/actuation aerosol powdr breath activated Discontinued 2 NMA INHALATION TWICE A DAY 1 July 31, 2025 8:16am August 04, 2025 8:39am Start: 03-12-2025 End: 07-31-2025 take 180 ug by inhalation twice daily Budesonide (Pulmicort Flexhaler) 180 mcg/actuation aerosol powdr breath activated Discontinued 2 NMA INHALATION TWICE A DAY 1 March 12, 2025 12:00am July 31, 2025 8:17am Start: 03-12-2025 take 180 ug by inhal ation twice daily Budesonide (Pulmicort Flexhaler) 180 mcg/actuation aerosol powdr breath activated Active 2 NMA INHALATION TWICE A DAY March 12, 2025 12:00am cetirizine hydrochloride 10 mg oral tablet (9 sources) Histamine-1 Receptor Antagonist Start: 11-16-2020 take 1 tablet by mouth once daily Cetirizine (Zyrtec) 10 mg tablet Active 10 mg PO DAILY November 16, 2020 1:00am Complies with drug therapy cholecalciferol 0.05 mg oral capsule (10 sources) Vitamin D Start: 11-16-2020 take 1 capsule by mouth once daily Cholecalciferol (Vitamin D3) 50 mcg (2,000 unit) capsule Active 50 ug PO DAILY November 16, 2020 1:00am Complies with drug therapy Cholecalciferol (VITAMIN D3) 1000 units CAPS Take 1 capsule by mouth 0 Active citalopram 40 mg oral tablet (10 sources) Serotonin Reuptake Inhibitor Start: 10-30-2020 take 1 tablet by mouth once daily Citalopram 40 MG tablet Active 40 mg PO DAILY October 30, 2020 1:00am Complies with drug therapy take 1 tablet by mouth once chad y citalopram (CELEXA) 40 MG tablet Take 40 mg by mouth daily 0 Active Multiple Vitamins-Minerals (THERAPEUTIC MULTIVITAMIN-MINERALS) tablet (1 source) take 1 tablet by mouth once daily Multiple Vitamins-Minerals (THERAPEUTIC MULTIVITAMIN-MINERALS) tablet Take 1 tablet by mouth daily 0 Active Ptohiuhv-Vne-Qppg-Fa-Lutein (Centrum Silver Women) 8 mg iron-400 mcg-300 mcg tablet (1 source) Start: 11-16-19 take 1 tablet by mouth once daily Sgmtvuay-Rmv-Grnr-Fa-Lutein (Centrum Silver Women) 8 mg iron-400 mcg-300 mcg tablet Active 1 TABLET PO DAILY November 16, 2020 1:00am Gjalwpfi-Brl-Vyql-Fa-Vit K-L ut (Centrum Silver Women) 8 mg iron-400 mcg-300 mcg tablet (8 sources) Start: 11-16-19 21 Dnuisrrp-Jse-Hwwa-Fa-Vit K-L ut (Centrum Silver Women) 8 mg iron-400 mcg-300 mcg tablet Active 1 {tbl} PO DAILY November 16, 2020 1:00am Complies with drug therapy Start: 11-16-2020 Lktmzbzb-Qye-K kumar-Fa-Vit K-Lut (Centrum Silver Women) 8 mg iron-400 mcg-300 mcg tablet Active 1 {tbl} PO DAILY November 16, 2020 1:00am Start: 11-16-2020 take 1 tablet by nguyễn th once daily Dflzxbmy-Xho-Myku-Fa-Vit K-Lut (Centrum Silver Women) 8 mg iron-400 mcg-300 mcg tablet Active 1 TABLET PO DAILY November 16, 2020 1:00am Start: 11-16-2020 take 1 tablet by nguyễn th once daily Pyynyokh-Dir-Ohfx-Fa-Vit K-Lut (Centrum Silver Women) 8 mg iron-400 mcg-300 mcg tablet Active 1 TABLET PO DAILY November 16, 2020 12:00am rosuvastatin calcium 5 mg oral tablet (5 sources) HMG-CoA Reductase Inhibitor Start: 01-23-2025 take 1 tablet by mouth at bedtime Rosuvastatin 5 mg tablet Active 5 mg PO AT BEDTIME January 23, 2025 12:00am Complies with drug therapy Start: 01-23-2025 take 1 tablet by nguyễn th at bedtime Rosuvastatin 5 mg tablet Active 5 mg PO AT BEDTIME January 23, 2025 12:00am Completed/Discontinued Medications Medication Drug Class(es) Dates Sig (Normalized) Sig (Original) azithromycin 250 mg oral tablet (5 sources) Macrolide Antimicrobial Start: 04-13-2024 End: 01-23-2025 Azithromycin 250 mg tablet Discontinued 0 PO .COMPLEX 6 0 April 13, 2024 12:00am January 23, 2025 8:44am For 250 mg dose pack: take 500 mg today (day 1), then 250 mg for 4 days (days 2-5) PO benzonatate 200 mg oral capsule (8 sources) Non-narcotic Antitussive Start: 10-24-2023 End: 04-13-2024 take 1 capsule by mouth three times daily as needed for cough Benzonatate 200 mg capsule Discontinued 200 mg PO THREE TIMES A DAY as needed for cough 14 0 October 24, 2023 1:00am April 13, 2024 8:42am cyclobenzaprine hydrochloride 10 mg oral tablet (8 sources) Muscle Relaxant Start: 10-12-2022 End: 10-17-2022 take 1 tablet by mouth three times daily as needed for muscle spasms Cyclobenzaprine 10 mg tablet Discontinued 10 mg PO THREE TIMES A DAY as needed for muscle spasm 20 5 0 October 12, 2022 1:00am October 16, 2022 1:00am October 17, 2022 1:03am Fluticasone Furoate (2 sources) Corticosteroid Start: 02-27-2025 End: 03-12-2025 take 200 ug by inhalation once daily Fluticasone Furoate (Arnuity Ellipta) 200 mcg/actuation blister with device Discontinued 1 NMA INHALATION daily 05 10February 27, 2025 12:00am March 12, 2025 12:55pm administer at approximately the same time(s) each day Start: 02-27-2025 End: 03-12-2025 take 200 ug by inhalation once daily Fluticasone Furoate (Arnuity Ellipta) 200 mcg/actuation blister with device Discontinued 1 NMA INHALATION daily February 27, 2025 12:00am March 12, 2025 12:55pm administer at approximately the same time(s) each day methylPREDNISolone 4 mg oral tablet (16 sources) Corticosteroid Start: 10-24-2023 End: 04-13-2024 take 1 tablet by mouth once Methylprednisolone (Medrol (Aaron)) 4 mg tablets,dose pack Discontinued 0 PO per package directions 0 October 24, 2023 1:00am April 13, 2024 8:42am PO PER PKG DIR Start: 10-12-2022 End: 10-18-2022 take 1 tablet by mouth once Methylprednisolone (Medrol (Aaron)) 4 mg tablets,dose pack Discontinued 4 mg PO per package directions 21 6 0 October 12, 2022 1:00am October 17, 2022 1:00am October 18, 2022 1:03am 24 hr metoprolol succinate 25 mg extended release oral tablet (20 sources) beta-Adrenergic Marielle Start: 11-26-2021 End: 01-23-2025 take 1 tablet by mouth once daily as needed Metoprolol Succinate 25 mg tablet extended release 24 hr Discontinued 25 mg PO DAILY as needed for tachycardia 90 1 December 23, 2021 4:54pm January 23, 2025 8:45am Start: 10-30-2020 End: 03-30-2021 take 1 tablet by mouth once daily Metoprolol Succinate 25 MG tablet extended release 24 hr Discontinued 25 mg PO DAILY 30 0 October 30, 2020 1:00am March 30, 2021 9:23am predniSONE 20 mg oral tablet (5 sources) Start: 04-13-2024 End: 04-18-2024 take 2 tablets by mouth once daily Prednisone 20 mg tablet Discontinued 40 mg PO DAILY 10 5 0 April 13, 2024 12:00am April 17, 2024 12:00am April 18, 2024 12:06am Problems Active Problems Problem Classification Problem Date Documented Date Episodic/Chronic Acute bronchitis (5 sources) Acute bronchitis; Translations: [Acute bronchitis, unspecified] 04-13-2024 Episodic Asthma (5 sources) Cough variant asthma; Translations: [Cough variant asthma] 02-27-2025 Chronic Cardiac dysrhythmias (9 sources) Supraventricular tachycardia; Translations: [Supraventricular tachycardia] 12-23-2021 Chronic Comment on above: successful slow path way ablation for management of typical AV node reentrant tachycardia 12/23/21 Disorders of lipid metabolism (6 sources) Hypercholesterolemia; Translations: [Pure hypercholesterolemia, unspecified] Onset: 01-25-2025 01-23-2025 Chronic Esophageal disorders (6 sources) Gastroesophageal reflux disease; Translations: [Gastro-esophageal reflux disease without esophagitis] 05-01-2025 Chronic Esophageal disorders (1 source) Esophageal disorders Immunizations and screening for infectious disease (9 sources) Patient encounter status; Translations: [Encounter for screening for COVID-19] 11-25-2021 Episodic Other lower respiratory disease (9 sources) Cough; Translations: [Cough] 01-23-2025 Episodic Other nutritional; endocrine; and metabolic disorders (13 sources) Obesity; Translations: [Obesity, unspecified] 11-26-2021 Chronic Other upper respiratory disease (1 source) Allergic rhinitis, unspecified; Translations: [Allergic rhinitis, unspecified] Onset: 02-20-2025 Chronic Other upper respiratory infections (9 sources) Upper respiratory infection; Translations: [Acute upper respiratory infection, unspecified] 11-25-2021 Episodic Sprains and strains (8 sources) Strain of muscle of hip; Translations: [Strain of muscle, fascia and tendon of left hip, initial encounter] 10-12-2022 Episodic Unclassified (1 source) Cough, unspecified; Translations: [Cough, unspecified] Onset: 03-24-2025 Past or Other Problems Problem Classification Problem Date Documented Date Episodic/Chronic Other screening for suspected conditions (not mental disorders or infectious disease) (1 source) Encounter for screening mammogram for malignant neoplasm of breast; Translations: [Encounter for screening mammogram for malignant neoplasm of breast] Onset: 12-24-2024 Episodic Residual codes; unclassified (9 sources) History of radiofrequency ablation operation for arrhythmia; Translations: [Other specified postprocedural states] Onset: 12-23-2021 12-23-2021 Episodic Comment on above: 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 [address] [place] [address] OFFICE VISIT Date of Service: 09/04/25 MR#: [id number] Acct: [id number] Name: ALLA KIMBALL Rep #: [id number] : 1970 Provider: Dr. Estella otoole MD Age/Sex: 55/F Location: [facility] Status: Signed Intake Vital Signs 07/31/25 07:29 09/04/25 15:00 Height 5 ft 2 in 5 ft 2 in Weight: 174 lb 174 lb BMI 31.8 31.8 BP 119/73 148/80 H Blood Pressure Location Lt brachial Rt brachial Position Sitting Sitting Respiration 18 16 Pulse 92 Pulse Source Monitor Temp 97.4 F L Pulse Oximetry (%) 98 Oxygen Delivery Method room air Intake Visit Reasons: Gastroesophageal reflux disease (GERD) Chief Complaint: cough/gerd Mobile Application Engineer Required: No Is patient in pain?: No Allergies No Known Allergies Allergy (Verified 09/04/25 15:01) Medications ???Medication ???Instructions ???Recorded ???Confirmed ???Type citalopram 40 mg tablet 40 mg PO DAILY 10/30/20 09/04/25 H istory cetirizine 10 mg tablet (Zyrtec) 10 mg PO DAILY 11/16/20 09/04/25 H istory cholecalciferol (vitamin D3) 50 50 mcg PO DAILY 11/16/20 09/04/25 History mcg (2,000 unit) capsule dzzfewnx-lqzv-ugie 8 mg-folic 400 1 tab PO DAILY 11/16/20 09/04/25 History mcg-K 50 mcg-lutein 300 mcg tablet (Centrum Silver Women) albuterol sulfate 90 mcg/actuation 2 puff inhalation Q6-8H PRN 01/0509/04/25 History aerosol inhaler rosuvastatin 5 mg tablet 5 mg PO QHS 01/23/25 09/04/25 Hist ory budesonide 180 mcg/actuation 2 inh inhalation BID #1 ea 5 09/04/25 Rx breath activated powder inhaler (Pulmicort Flexhaler) Have you fallen in the past year?: No PFSH Medical History Hypercholesterolemia SVT (supraventricular tachycardia) Encounter for screening for COVID-19 URI (upper respiratory infection) Colon polyp Obesity LYNNE (generalized anxiety disorder) Surgical History History of radiofrequency ablation procedure for cardiac arrhythmia (12/23/21) History of abdominal hysterectomy Family History Other COPD (chronic obstructive pulmonary disease) Diabetes Hypertension Social History pets and animals: Yes pets and animals: dog(s) Smoking Status: Never smoker Electronic Cigarette Use: not used alcohol intake: current alcohol intake frequency: a few times a month substance use type: does not use what type of physical activity do you participate in: none HPI HPI HPI: 35-year-old female presents for an EGD due to possible silent reflux. Patient states that she has had these episodes for a few years. This time started about 2 weeks ago and also happened last winter. She will have a cough, all the time. Patient has not been on any PPIs. Patient states she will also get this more frequently after eating or drinking. Patient does have some issues with constipation goes about once every 3 days. ROS General General: No weight change, appetite, fatigue, colon cancer, breast cancer or weakness HEENT HEENT: No difficulty swallowing, eye injury, eye surgery, swollen glands or hoarseness Endo Endocrine: No thyroid disease, diabetes mellitus, thyroid cancer, Hair loss, heat intolerance or cold intolerance Skin Skin: No rash or changing moles Breast Breast: No left breast lump, right breast lump, nipple discharge, breast pain, abnormal mammogram, abnormal US or breast enlargement Musc Musculoskeletal: No back problems, arthritis, rheumatoid arthritis, gout or joint pain Cardio Cardiovascular: No murmur, pacemaker, heart disease, atrial fibrillation, high blood pressure, heart attack, heart stent, palpitations, shortness of breath with exertion or chest pain Psych Psychiatric: Yes anxiety; No depression or hearing voices Resp Respiratory: No shortness of breath, No sleep apnea, Yes cough, No COPD, Yes asthma, No emphysema and No wheezing Gastro Gastrointestinal: No abdominal pain, No nausea or vomiting, No diarrhea, Yes constipation, No blood in stool, No acid reflux, No hemorrhoids, No ulcers, No gallbladder problem and No black,tarry stools Iggy Hematologic: No blood thinners, No blood disorders, No bleeding, No anemia and No blood clots Neuro Neurologic: No system reviewed and no additional complaints, except as documented, No as per HPI, No abnormal gait, No abnormal hearing, No abnormal movements, No abnormal speech, No behavioral changes, No burning sensations, No confusion, No convulsions, No disequilibrium, No dizziness, No localized weakness, No frequent falls, No headache(s), No lack of coordination, No los (more content not included)... Normal [facility] Pulmonary Visit Reporton Pulmonary Visit Report [facility] [address] [place] [address] OFFICE VISIT Date of Service: 07/31/25 MR#: [id number] Acct: [id number] Name: ALLA KIMBALL Rep #: [id number] : 1970 Provider: MERCY Mclaughlin Age/Sex: 55/F Location: [facility] [place].[facility] Status: Signed Assessment and Plan Assessment and Plan (1) Cough variant asthma: Status: Chronic Plan: Stable, no signs of exacerbation of asthma today. No change in maintenance medications, well- controlled on Pulmicort and Zyrtec. No additional testing at this time. Contact the office with any signs of new or worsening symptoms. Follow-up in 1 year. (2) Acid reflux: Status: Chronic Qualifiers: Esophagitis presence: esophagitis presence not specified Qualified Code(s): K21.9 - Gastro- esophageal reflux disease without esophagitis Plan: She reports coughing that occurs after eating or drinking. Symptoms are concerning for gastro esophageal reflux disease, therefore I am sending her to a surgeon to be evaluated. Orders: Referrals General Surgery K21.9 - Gastro-esophageal reflux disease without esophagitis Medications: Refilled budesonide 180 mcg/actuation (Pulmicort Flexhaler) 2 inhalations inhalation BID 1 ea 11RF Plan Details Additional Comments: This note was generated with Weby[employer]. dictation software. It may contain incorrect words, spelling, and punctuation that were not noted in checking the note before signing. 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 She is ambulatory and on room air. She has not recently been seen in the ED or urgent care for any respiratory illness. She has not recently required any antibiotics or prednisone for any breathing problems. She is compliant with the use of Pulmicort twice daily. She reports rinsing her mouth out after each use. She denies any medication side effect such as sore throat or thrush. She does not utilize albuterol frequently. She is on Zyrtec daily. She is a lifelong never smoker. She denies any shortness of breath. She has a chronic dry daily cough. The cough is common with eating and drinking. She denies any wheezing, chest tightness, chest pain or palpitations. She denies any fever, chills or body aches. Intake Vital Signs 05/01/25 07:20 07/31/25 07:29 Height 5 ft 2 in 5 ft 2 in Weight: 174 lb BMI 31.8 BP 119/73 Blood Pressure Location Lt brachial Position Sitting Respiration 18 Pulse 92 Pulse Source Monitor Temp 97.4 F L Temperature Source Temporal Artery Pulse Oximetry (%) 98 Oxygen Delivery Method room air Intake Visit Reasons: 3 M FU Chief Complaint: cough, chest congestion, yellow mucus Mobile Application Engineer Required: No DME Vendor: n/a Accompanied by: Self Is patient in pain?: No Allergies No Known Allergies Allergy (Verified 07/31/25 08:08) Medications ???Medication ???Instructions ???Recorded ???Confirmed ???Type citalopram 40 mg tablet 40 mg PO DAILY 10/30/20 07/31/25 H istory cetirizine 10 mg tablet (Zyrtec) 10 mg PO DAILY 11/16/20 07/31/25 H istory cholecalciferol (vitamin D3) 50 50 mcg PO DAILY 11/16/20 07/31/25 History mcg (2,000 unit) capsule ydasrcxl-dtir-tvrm 8 mg-folic 400 1 tab PO DAILY 11/16/20 07/31/25 History mcg-K 50 mcg-lutein 300 mcg tablet (Centrum Silver Women) albuterol sulfate 90 mcg/actuation 2 puff inhalation Q6-8H PRN 01/0507/31/25 History aerosol inhaler rosuvastatin 5 mg tablet 5 mg PO QHS 01/23/25 07/31/25 Hist ory budesonide 180 mcg/actuation 2 inh inhalation BID #1 ea 5 07/31/25 Rx breath activated powder inhaler (Pulmicort Flexhaler) Have you fallen in the past year?: No PFSH Medical History (Reviewed 07/31/25 @ 08:14 by Rupinder Mclaughlin STORE CLERK CHECKER, STORE CLERK CHECKER-C) Hypercholesterolemia SVT (supraventricular tachycardia) Encounter for screening for COVID-19 URI (upper respiratory infection) Colon polyp Obesity LYNNE (generalized anxiety disorder) Surgical History (Reviewed 07/31/25 @ 08:14 by Rupinder Mclaughlin STORE CLERK CHECKER, STORE CLERK CHECKER-C) History of radiofrequency ablation procedure for cardiac arrhythmia (12/23/21) History of abdominal hysterectomy Family History Other COPD (chronic obstructive pulmonary disease) Diabetes Hypertension Social History pets and animals: Yes pets and animals: dog(s) Smoking Status: Never smoker Electronic Cigarette Use: not used alcohol intake: current alcohol intake frequency: a few times a month substance use type: does not use what type of physical activity do you partic (more content not included)... Normal [facility] Pulmonary Visit Reporton Pulmonary Visit Report [facility] [address] [place] [address] OFFICE VISIT Date of Service: 05/01/25 MR#: [id number] Acct: [id number] Name: ALLA KIMBALL Rep #: [id number] : 1970 Provider: MERCY Mclaughlin Age/Sex: 55/F [place] [facility] [place] Status: Signed Assessment and Plan Assessment and Plan (1) Cough variant asthma: Status: Chronic Plan: She has responded well to Pulmicort. She has not had any coughing episodes since starting Pulmicort. She admits that she is still getting used to taking the maintenance inhaler scheduled. She is still having occasional dry cough. She also reports that the remaining cough seems to be associated with eating or drinking. No additional testing at this time. We are going to continue to monitor her response as she develops a routine of using the inhaler as prescribed. I also want a monitor how she responds to the various seasons. She states that historically she was more symptomatic in fall and winter. Return to the office in July. Contact the office with new or worsening symptoms in the meantime. (2) Acid reflux: Status: Acute Qualifiers: Esophagitis presence: esophagitis presence not specified Qualified Code(s): K21.9 - Gastro- esophageal reflux disease without esophagitis Plan: She reports coughing that occurs after eating or drinking. She does not believe this is consistent with choking. Symptoms could be consistent with gastro esophageal reflux disease, therefore I am sending her to a surgeon to be evaluated. She will contact our office later to let us know which surgeon she would like to be seen by. Plan Details Additional Comments: This note was generated with Webydo. dictation software. It may contain incorrect words, spelling, and punctuation that were not noted in checking the note before signing. HPI 2 M FU Chief Complaint: Response to medication HPI Comments Details: This patient presents to the office today to evaluate her response to maintenance inhaler. She is ambulatory and currently on room air. She has not recently been seen in the ED or urgent care for any respiratory illness. She has not recently required any antibiotics or prednisone for any breathing problems. She is compliant with the use of Pulmicort twice daily. She reports rinsing her mouth out after each use. She denies any medication side effect such as sore throat or thrush. She does not utilize albuterol frequently. She is on Zyrtec daily. She is a lifelong never smoker. She denies any shortness of breath. She has a chronic dry daily cough. She admits that the cough is significantly less frequent. The 20-minute coughing fits have completely subsided. She does continue to experience occasional coughing after eating or drinking. She denies any wheezing, chest tightness, chest pain or palpitations. She denies any fever, chills or body aches. Intake Vital Signs 02/27/25 07:44 05/01/25 07:20 Height 5 ft 2 in 5 ft 2 in Weight: 173 lb 172 lb BMI 31.6 31.4 BP 113/72 134/83 H Blood Pressure Location Lt brachial Rt brachial Position Sitting Sitting Respiration 14 16 Pulse 71 73 Pulse Source Monitor Monitor Temp 97.4 F L 97.4 F L Temperature Source Temporal Artery Temporal Artery Pulse Oximetry (%) 98 97 Oxygen Delivery Method room air room air Intake Visit Reasons: 2 M FU Chief Complaint: cough, chest congestion, yellow mucus Mobile Application Engineer Required: No DME Vendor: N/a Accompanied by: Self Is patient in pain?: No Allergies No Known Allergies Allergy (Verified 05/01/25 07:43) Medications ???Medication ???Instructions ???Recorded ???Confirmed ???Type citalopram 40 mg tablet 40 mg PO DAILY 10/30/20 05/01/25 H istory cetirizine 10 mg tablet (Zyrtec) 10 mg PO DAILY 11/16/20 05/01/25 H istory cholecalciferol (vitamin D3) 50 50 mcg PO DAILY 11/16/20 05/01/25 History mcg (2,000 unit) capsule cbhafljk-ckat-zjng 8 mg-folic 400 1 tab PO DAILY 11/16/20 05/01/25 History mcg-K 50 mcg-lutein 300 mcg tablet (Centrum Silver Women) albuterol sulfate 90 mcg/actuation 2 puff inhalation Q6-8H PRN 01/0505/01/25 History aerosol inhaler rosuvastatin 5 mg tablet 5 mg PO QHS 01/23/25 05/01/25 Hist ory budesonide 180 mcg/actuation 2 inh inhalation BID #1 ea 5 05/01/25 Rx breath activated powder inhaler (Pulmicort Flexhaler) Have you fallen in the past year?: No [facility] Medical History (Reviewed 05/01/25 @ 07:58 by Rupinder Mclaughlin STORE CLERK CHECKER, STORE CLERK CHECKER-C) Hypercholesterolemia SVT (supraventricular tachycardia) Encounter for screening for COVID-19 URI (upper respiratory infection) Colon polyp Obesity LYNNE (generalized anxiety disorder) Surgical History (Reviewed 05/01/25 @ 07:58 by Rupinder Mclaughlin STORE CLERK CHECKER, STORE CLERK CHECKER-C) (more content not included)... Normal [facility] Mumps Antibody,IgGon 025 MUMPS Ab, IgG 76.2 AU/mL Normal Immune >10.9 [facility] Comment on above: Result Comment: Nega tive <9.0 Equivocal 9.0 - 10.9 Positive >10.9 A positive result generally indicates past exposure to Mumps virus or previous vaccination. Performed By: #### L 3100.3400, L3400.1750, L504.5090 ####[facility] [address] [place], [address] [facility] EMP Rubeola Titeron 050 RUBEOLA Ab, IgG > 300.0 Normal Immune >16.4 [facility] Comment on above: Result Comment: Nega tive <13.5 Equivocal 13.5 - 16.4 Positive >16.4 Presence of antibodies to Rubeola is presumptive evidence of immunity except when acute infection is suspected. Performed at: - [facility] [id number] Powder Worker: Edgar Ellison PhD, Phone: [phone] Performed By: #### L 3100.3400, [id number], J181.7640 ####[facility] [address] [place], [address] Hepatitis B Surface Antibody on 03-06-2025 HEP B Surf Ab REAC Normal [facility] Comment on above: Result Comment: <8.5 mIU/mL: Non-Reactive 8.5<= x <11.5 mIU/mL: Indeterminate >=11.5 mIU/mL: Reactive Non Reactive: Inconsistent with immunity less than <10 mIU/mL Reactive: Consistent with immunity greater than or equal to 10 mIU/mL Performed By: #### L 3890.6202 #### [facility] [address] [facility] [place], [address] L509.4006on 03-06-2025 Rubella IgG REAC Normal Nonreactive [facility] Comment on above: Result Comment: Anti body Result: Interpretation Non-Reactive: Non-Immune Reactive: Immune The following results were obtained with the [email or web address] Rubella IgG assay. Results from assays of other manufacturers cannot be used interchangeably. Performed By: #### L 3100.3400, L3400.1750, L509.4006 ####[facility] [address] [place], [place], [address] Serum hepatitis B virus surf chiquita antibody detectionOrdered By: Sift Shopping on 03-06-2025 HBV surface Ab Ql (S) REAC [facility] Comment on above: <8.5 mIU/mL: Non-Ann ctive8.5<= x <11.5 mIU/mL: Indeterminate>=11.5 mIU/mL: Reactive Non Reactive: Inconsistent with immunity less than <10 mIU/mL Reactive: Consistent with immunity greater than or equal to 10 mIU/mL Serum measles virus IgG anti body assay (units/volume)Ordered By: Sift Shopping on 03-06-2025 MeV IgG Qn (S) > 300.0 AU/mL Immune >16.4 [facility] Comment on above: Negative <13.5 Equiv ocal 13.5 - 16.4 Positive >16.4Presence of antibodies to Rubeola is presumptive evidenceof immunity except when acute infection is suspected.Performed at: - [facility] [id number] Director: Edgar Ellison PhD, Phone: [phone] Serum mumps virus IgG antibo dy assay (units/volume)Ordered By: Sift Shopping on 03-06-2025 MuV IgG Qn (S) 76.2 AU/mL Immune >10.9 [facility] Comment on above: Negative <9.0 Equivo maikol 9.0 - 10.9 Positive >10.9A positive result generally indicates past exposure toMumps virus or previous vaccination. Pulmonary Visit Reporton Pulmonary Visit Report [facility] [address] [place] [address] OFFICE VISIT Date of Service: 02/27/25 MR#: [id number] Acct: [id number] Name: ALLA KIMBALL Rep #: [id number] : 1970 Provider: MERCY Mclaughlin Age/Sex: 55/F Location: [facility] [place].PMW Status: Signed Assessment and Plan Assessment and Plan (1) Cough variant asthma: Status: Suspected Plan: Reviewed test results with the patient today. We have identified that she is at least triggered by dust. Eosinophil count within normal range. She has a daily cough that occurs when she goes outside and gets into her car every morning. The car is parked in the garage, and therefore could be secondary to dust exposure. We discussed obtaining a bronchoprovocation versus a trial of daily maintenance inhaler. We decided to proceed with a daily maintenance inhaler. Placing her on Arnuity 1 puff daily. She was instructed to rinse her mouth out after each use. Return to the office in 2 months to evaluate her response to therapy. If she is not responsive to the Arnuity we may consider proceeding with the bronchoprovocation. No additional testing at this time. Contact the office with any new or worsening symptoms in the meantime. Medications: New fluticasone furoate 200 mcg/actuation (Arnuity Ellipta) administer at approximately the same time(s) each day 1 inh inhalation QDAY 30 ea 11RF Plan Details Additional Comments: This note was generated with [employer] software. It may contain incorrect words, spelling, and punctuation that were not noted in checking the note before signing. Follow Up: 2 Months ([facility]) HPI 5 WK FU Chief Complaint: Test results HPI Comments Details: This patient presents to the office today for follow up of her chronic cough and to discuss test results. She is ambulatory and currently on room air. She has not recently been seen in the ED or urgent care for any respiratory illness. She has not recently required any antibiotics or prednisone for any breathing problems. She cannot recall for sure the last time she was treated with a course of prednisone, however she believes it might have been in October. She is not currently on a daily maintenance inhaler. She does not utilize albuterol frequently. She is on Zyrtec daily. She is a lifelong never smoker. She denies any shortness of breath. She has a chronic dry daily cough. The cough seems to occur when she goes outside to get into her car every morning. She denies any wheezing, chest tightness, chest pain or palpitations. She denies any fever, chills or body aches. Test results personally reviewed with the patient: Pulmonary function test completed on 07/05/2025. Impression is grossly normal. Allergies noted to dust. Total eosinophil count 129.5. Intake Vital Signs 01/23/25 07:54 02/27/25 07:44 Height 5 ft 2 in 5 ft 2 in Weight: 172 lb 173 lb BMI 31.4 31.6 BP 128/74 H 113/72 Blood Pressure Location Lt brachial Lt brachial Position Sitting Sitting Respiration 16 14 Pulse 72 71 Pulse Source Monitor Monitor Temp 97.4 F L 97.4 F L Temperature Source Temporal Artery Temporal Artery Pulse Oximetry (%) 97 98 Oxygen Delivery Method room air room air Intake Visit Reasons: 5 WK FU Mobile Application Engineer Required: No DME Vendor: None Accompanied by: Self Is patient in pain?: No Allergies No Known Allergies Allergy (Verified 02/27/25 07:45) Medications ???Medication ???Instructions ???Recorded ???Confirmed ???Type citalopram 40 mg tablet 40 mg PO DAILY 10/30/20 02/27/25 H istory cetirizine 10 mg tablet (Zyrtec) 10 mg PO DAILY 11/16/20 02/27/25 H istory cholecalciferol (vitamin D3) 50 50 mcg PO DAILY 11/16/20 02/27/25 History mcg (2,000 unit) capsule tnnhdnfo-hsuk-qnfm 8 mg-folic 400 1 tab PO DAILY 11/16/20 02/27/25 History mcg-K 50 mcg-lutein 300 mcg tablet (Centrum Silver Women) albuterol sulfate 90 mcg/actuation 2 puff inhalation Q6-8H PRN 01/0502/27/25 History aerosol inhaler rosuvastatin 5 mg tablet 5 mg PO QHS 01/23/25 02/27/25 Hist ory fluticasone furoate 200 1 inh inhalation QDAY #30 ea 02/2702/27/25 Rx mcg/actuation blister powder for inhalation (Arnuity Ellipta) [facility] Medical History (Reviewed 02/27/25 @ 07:57 by Rupinder Mclaughlin STORE CLERK CHECKER, STORE CLERK CHECKER-C) Hypercholesterolemia SVT (supraventricular tachycardia) Encounter for screening for COVID-19 URI (upper respiratory infection) Colon polyp Obesity LYNNE (generalized anxiety disorder) Surgical History (Reviewed 02/27/25 @ 07:57 by Rupinder Mclaughlin STORE CLERK CHECKER, STORE CLERK CHECKER-C) History of radiofrequency ablation procedure for cardiac arrhythmia (12/23/21) History of abdominal hysterectomy Family History (Reviewed 02/27/25 @ 07:57 by Rupinder Mclaughlin STORE CLERK CHECKER (more content not included)... Normal [facility] ANCAon 02-24-2025 Atypical pANCA <1:20 Normal Neg:<1:20 [facility] Comment on above: Result Comment: The atypical pANCA pattern has been observed in a significant percentage of patients with ulcerative colitis, primary sclerosing cholangitis and autoimmune hepatitis. Performed By: #### L 5500.0300, L3500.3600, L3300.1200, L3200.1600, L100.0100 #### [facility] [address] [place], [address] Cytoplasmic Ab <1:20 Normal Neg:<1:20 [facility] Comment on above: Performed By: #### L 5500.0300, L3500.3600, L3300.1200, L3200.1600, L100.0100 #### [facility] [address] [place], [place], [id number] Perinuclear Ab. <1:20 Normal Neg:<1:20 [facility] Comment on above: Result Comment: The presence of positive fluorescence exhibiting P-ANCA or C-ANCA patterns alone is not specific for the diagnosis of Chrystal's Granulomatosis (WG) or microscopic polyangiitis. Decisions about treatment should not be based solely on ANCA IFA results. The International ANCA Group Consensus recommends follow up testing of positive sera with both NC- 3 and MPO-ANCA enzyme immunoassays. As many as 5% serum samples are positive only by EIA. Ref. AM J Clin Pathol 1999;111:507-513. Performed By: #### L 5500.0300, L3500.3600, L3300.1200, L3200.1600, L100.0100 #### [facility] [address] [place], [address] Allergen, Mini-Raston 2024 A. ALTERNATA <0.10 Normal Class 0 [facility] Comment on above: Performed By: #### L 5500.0300, L3500.3600, L3300.1200, L3200.1600, L100.0100 #### [facility] [address] [place], [address] BERMUDA GRASS <0.10 Normal Class 0 [facility] Comment on above: Performed By: #### L 5500.0300, L3500.3600, L3300.1200, L3200.1600, L100.0100 #### [facility] [address] [place], [address] [place], [place] <0.10 Normal Class 0 [facility] Comment on above: Performed By: #### L 5500.0300, L3500.3600, L3300.1200, L3200.1600, L100.0100 #### [facility] [address] [place], [address] CAT HAIR/DANDER <0.10 Normal Class 0 [facility] Comment on above: Performed By: #### L 5500.0300, L3500.3600, L3300.1200, L3200.1600, L100.0100 #### [facility] [address] [place], [address] COMMENT Comment Normal . [facility] Comment on above: Result Comment: Guadalupe mullins of Specific IgE Class Description of Class ----- < 0.10 0 Negative 0.10 - 0.31 0/I Equivocal/Low 0.32 - 0.55 I Low 0.56 - 1.40 II Moderate 1.41 - 3.90 III High 3.91 - 19.00 IV Very High 19.01 - 100.00 V Very High >100.00 Very High Performed By: #### L 5500.0300, L3500.3600, L3300.1200, L3200.1600, L100.0100 #### [facility] [address] [place], [place], [id number] D FARINAE MITE 1.84 kU/L Abnormal Class III [facility] Comment on above: Performed By: #### L 5500.0300, L3500.3600, L3300.1200, L3200.1600, L100.0100 #### [facility] [address] [place], [address] D PTERONYSSINUS 1.80 kU/L Abnormal Class III [facility] Comment on above: Performed By: #### L 5500.0300, L3500.3600, L3300.1200, L3200.1600, L100.0100 #### [facility] [address] [place], [address] DOG EPITHELIA <0.10 Normal Class 0 [facility] Comment on above: Performed By: #### L 5500.0300, L3500.3600, L3300.1200, L3200.1600, L100.0100 #### [facility] [address] [place], [address] ELM,AMER WHITE <0.10 Normal Class 0 [facility] Comment on above: Performed By: #### L 5500.0300, L3500.3600, L3300.1200, L3200.1600, L100.0100 #### [facility] [address] [place], [place], [id number] Mouse Urine <0.10 Normal Class 0 [facility] Comment on above: Result Comment: Perf ormed at: [facility] [address] [id number] Powder Worker: Mathew Crowley MD, Phone: [phone] Performed By: #### L 5500.0300, L3500.3600, L3300.1200, L3200.1600, L100.0100 #### [facility] [address] [place], [address] OAK, WHITE <0.10 Normal Class 0 [facility] Comment on above: Performed By: #### L 5500.0300, L3500.3600, L3300.1200, L3200.1600, L100.0100 #### [facility] [address] [place], [address] PLANTAIN,ENGLSH <0.10 Normal Class 0 [facility] Comment on above: Performed By: #### L 5500.0300, L3500.3600, L3300.1200, L3200.1600, L100.0100 #### [facility] [address] [place], [address] RAGWEED SH/COM <0.10 Normal Class 0 [facility] Comment on above: Performed By: #### L 5500.0300, L3500.3600, L3300.1200, L3200.1600, L100.0100 #### [facility] [address] [place], [address] Aspergillus Antibodieson Asp. flavus Negative Normal Neg:<1:1 [facility] Comment on above: Performed By: #### L 5500.0300, L3500.3600, L3300.1200, L3200.1600, L100.0100 #### [facility] [address] [place], [address] Asp. fumigatus Negative Normal Neg:<1:1 [facility] Comment on above: Performed By: #### L 5500.0300, L3500.3600, L3300.1200, L3200.1600, L100.0100 #### [facility] [address] [place], [address] Asp. niger Negative Normal Neg:<1:1 [facility] Comment on above: Performed By: #### L 5500.0300, L3500.3600, L3300.1200, L3200.1600, L100.0100 #### [facility] [address] [place], [address] Immunoglobulin Francisco 5 IMMUNOGLOB E QN 17 IU/mL Normal 6-495 [facility] Comment on above: Result Comment: Perf ormed at: [facility] [id number] Powder Worker: Edgar Ellison PhD, Phone: [phone] Performed at: [facility] [address] [id number] Powder Worker: Mathew Crowley MD, Phone: [phone] Performed By: #### L 5500.0300, L3500.3600, L3300.1200, L3200.1600, L100.0100 #### [facility] [address] [place], [address] Absolute lymphocyte countOrd ered By: Rupinder Mclaughlin on 02-17-2025 Lymphocytes Auto (Unsp spec) [#/Vol] 1.04 10*3/uL 0.83-4.51 [facility] Absolute neutrophil countOrd ered By: Rupinder Mclaughlin on 02-17-2025 Neutrophils (Bld) [#/Vol] 1.9 10*3/uL Low 2.0-7.7 [facility] Automated lymphocyte count a s percentage of total leukocytesOrdered By: Rupinder Mclaughlin on 02-17-2025 Lymphocytes/100 WBC Auto (Unsp spec) 29.8 % 19-41 [facility] Basophil percentageOrdered B y: Rupinder Mclaughlin on 02-17-2025 Basophils/100 WBC (Bld) 1.4 % High 0-1 [facility] CBC W/Diff, Automatedon 02-04 Absolute Lymph 1.04 X10 3/uL Normal 0.83-4.51 [facility] Comment on above: Performed By: #### L 5500.0300, L3500.3600, L3300.1200, L3200.1600, L100.0100 #### [facility] [address] [place], [address] Absolute Neut 1.9 X10 3/uL Low 2.0-7.7 [facility] Comment on above: Performed By: #### L 5500.0300, L3500.3600, L3300.1200, L3200.1600, L100.0100 #### [facility] [address] [place], [address] Basophils/100 WBC (Bld) 1.4 % High 0-1 [facility] Comment on above: Performed By: #### L 5500.0300, L3500.3600, L3300.1200, L3200.1600, L100.0100 #### [facility] [address] [place], [address] Eosinophils/100 WBC (Bld) 3.7 % Normal 0-5 [facility] Comment on above: Performed By: #### L 5500.0300, L3500.3600, L3300.1200, L3200.1600, L100.0100 #### [facility] [address] [place], [address] Erythrocyte distribution width (RBC) [Ratio] 11.9 % Normal 11.6-14.6 [facility] Comment on above: Performed By: #### L 5500.0300, L3500.3600, L3300.1200, L3200.1600, L100.0100 #### [facility] [address] [place], [address] Hematocrit (Bld) [Volume fraction] 39.7 % Normal 37-47 [facility] Comment on above: Performed By: #### L 5500.0300, L3500.3600, L3300.1200, L3200.1600, L100.0100 #### [facility] [address] [place], [address] Hemoglobin (Bld) [Mass/Vol] 13.6 g/dL Normal 12.0-15. 0 [facility] Comment on above: Performed By: #### L 5500.0300, L3500.3600, L3300.1200, L3200.1600, L100.0100 #### [facility] [address] [place], [address] IG% 0.000 Normal 0.0-0.9 [facility] Comment on above: Result Comment: IG% - Immature Granulocytes (promyelocytes, myelocytes and metamyelocytes) > 1% indicates that a LEFT SHIFT is Present. Performed By: #### L 5500.0300, L3500.3600, L3300.1200, L3200.1600, L100.0100 #### [facility] [address] [place], [address] Lymphocytes/100 WBC (Bld) 29.8 % Normal 19-41 [facility] Comment on above: Performed By: #### L 5500.0300, L3500.3600, L3300.1200, L3200.1600, L100.0100 #### [facility] [address] [place], [address] MCH (RBC) [Entitic mass] 31.1 pg Normal 27.0-32.0 [facility] Comment on above: Performed By: #### L 5500.0300, L3500.3600, L3300.1200, L3200.1600, L100.0100 #### [facility] [address] [place], [address] MCHC (RBC) [Mass/Vol] 34.3 g/dL Normal 32-36 [facility] Comment on above: Performed By: #### L 5500.0300, L3500.3600, L3300.1200, L3200.1600, L100.0100 #### [facility] [address] [place], [address] MCV (RBC) [Entitic vol] 90.8 fL Normal 81-99 [facility] Comment on above: Performed By: #### L 5500.0300, L3500.3600, L3300.1200, L3200.1600, L100.0100 #### [facility] [address] [place], [address] Monocytes/100 WBC (Bld) 10.3 % High 0-10 [facility] Comment on above: Performed By: #### L 5500.0300, L3500.3600, L3300.1200, L3200.1600, L100.0100 #### [facility] [address] [place], [address] Neutrophils/100 WBC (Bld) 54.8 % Normal 47-70 [facility] Comment on above: Performed By: #### L 5500.0300, L3500.3600, L3300.1200, L3200.1600, L100.0100 #### [facility] [address] [place], [address] Nucleated RBC (Bld) [#/Vol] 0 10*3/uL Normal 0-5 [facility] Comment on above: Performed By: #### L 5500.0300, L3500.3600, L3300.1200, L3200.1600, L100.0100 #### [facility] [address] [place], [address] Platelet mean volume (Bld) [Entitic vol] 10.4 fL Normal 6.2-12.0 [facility] Comment on above: Performed By: #### L 5500.0300, L3500.3600, L3300.1200, L3200.1600, L100.0100 #### [facility] [address] [place], [address] Platelets (Bld) [#/Vol] 239 10*3/uL Normal 150-450 [facility] Comment on above: Performed By: #### L 5500.0300, L3500.3600, L3300.1200, L3200.1600, L100.0100 #### [facility] [address] [place], [address] RBC (Bld) [#/Vol] 4.37 10*6/uL Normal 4.2-5.4 [facility] Comment on above: Performed By: #### L 5500.0300, L3500.3600, L3300.1200, L3200.1600, L100.0100 #### [facility] [address] [place], [address] RDW SD 39.8 fl Normal 35.1-43.9 [facility] Comment on above: Performed By: #### L 5500.0300, L3500.3600, L3300.1200, L3200.1600, L100.0100 #### [facility] [address] [place], [address] WBC (Bld) [#/Vol] 3.5 10*3/uL Low 4.4-11.0 [facility] Comment on above: Performed By: #### L 5500.0300, L3500.3600, L3300.1200, L3200.1600, L100.0100 #### [facility] [address] [place], [address] Eosinophil percentageOrdered By: Rupinder Mclaughlin on 02-17-2025 Eosinophils/100 WBC (Bld) 3.7 % 0-5 [facility] Erythrocyte distribution wid th (RBC) [Ratio]Ordered By: Rupinder Mclaughlin on 02-17-2025 Erythrocyte distribution width (RBC) [Entitic vol] 39.8 fL 35.1-43.9 [facility] Erythrocyte distribution wid th ratioOrdered By: Rupinder Mclaughlin on 02-17-2025 Erythrocyte distribution width (RBC) [Ratio] 11.9 % 11.6-14.6 [facility] Erythrocyte distribution wid th standard deviationOrdered By: Rupinder Mclaughlin on 02-17-2025 Erythrocyte distribution width (RBC) [Ratio] 39.8 fl 35.1-43.9 [facility] Hematocrit Auto (Bld) [Volum e fraction]Ordered By: Rupinder Mclaughlin on 02-17-2025 Hematocrit (Bld) [Volume fraction] 39.7 % 37-47 [facility] Hemoglobin measurementOrdere d By: Rupinder Mclaughlin on 02-17-2025 Hemoglobin (Bld) [Mass/Vol] 13.6 g/dL 12.0-15. 0 [facility] IgEOrdered By: Rupinder sood on 02-17-2025 IgE 17 IU/mL 6-495 [facility] Comment on above: Performed at: [address] [id number] Director: Edgar Ellison PhD, Phone: [phone] at: [facility] [address] [id number] Director: Mathew Crowley MD, Phone: [phone] Immature granulocytes/100 WB C Auto (Bld)Ordered By: Rupinder Mclaughlin on 02-17-2025 Immature granulocytes/100 WBC (Bld) 0.000 % 0.0-0.9 [facility] Comment on above: IG% - Immature Granu locytes (promyelocytes, myelocytes and metamyelocytes) > 1% indicates that a LEFT SHIFT is Present. Laboratory - Miscellaneous t estsOrdered By: Rupinder Mclaughlin on 02-17-2025 Service comment (Unsp spec) [Interp] Comment . [facility] Comment on above: Levels of Specific I gE Class Description of Class ----- < 0.10 0 Negative 0.10 - 0.31 0/I Equivocal/Low 0.32 - 0.55 I Low 0.56 - 1.40 II Moderate 1.41 - 3.90 III High 3.91 - 19.00 IV Very High 19.01 - 100.00 V Very High >100.00 Very High Lymphocytes Auto (Unsp spec) [#/Vol]Ordered By: Rupinder Mclaughlin on 02-17-2025 Lymphocytes (Bld) [#/Vol] 1.04 10*3/uL 0.83-4.5 1 [facility] Lymphocytes/100 WBC Auto (Un sp spec)Ordered By: Rupinder Mclaughlin on 02-17-2025 Lymphocytes/100 WBC (Bld) 29.8 % 19-41 [facility] MCV (mean corpuscular volume ) determinationOrdered By: Rupinder Mclaughlin on 02-17-2025 MCV (RBC) [Entitic vol] 90.8 fL 81-99 [facility] Mean corpuscular hemoglobin (MCH) determinationOrdered By: Rupinder Mclaughlin on 02-17-2025 MCH (RBC) [Entitic mass] 31.1 pg 27.0-32.0 [facility] Mean corpuscular hemoglobin concentration (MCHC) determinationOrdered By: Rupinder Mclaughlin on 02-17-2025 MCHC (RBC) [Mass/Vol] 34.3 g/dL 32-36 [facility] Mean platelet volume determi nationOrdered By: Rupinder Mclaughlin on 02-17-2025 Platelet mean volume (Bld) [Entitic vol] 10.4 fL 6.2-12.0 [facility] Monocyte percentageOrdered B y: Rupinder Mclaughlin on 02-17-2025 Monocytes/100 WBC (Bld) 10.3 % High 0-10 [facility] Neutrophil percentageOrdered By: Rupinder Mclaughlin on 02-17-2025 Neutrophils/100 WBC (Bld) 54.8 % 47-70 [facility] Nucleated red blood cell per centageOrdered By: Rupinder Mclaughlin on 04-14-2025 Nucleated RBC/100 WBC (Bld) [Ratio] 0 % 0-5 [facility] Platelet countOrdered By: Agustina Mclaughlin on 02-17-2025 Platelets (Bld) [#/Vol] 239 10*3/uL 150-450 [facility] RBC Auto (Bld) [#/Vol]Ordere d By: Rupinder Mclaughlin on 02-17-2025 RBC (Bld) [#/Vol] 4.37 10*6/uL 4.2-5.4 [facility] Serum Aspergillus flavus ant ibody detection by immunodiffusionOrdered By: Rupinder Mclaughlin on 02-17-2025 A. flavus Ab Immune diff Ql (S) Negative Neg:<1:1 [facility] Serum Aspergillus fumigatus antibody detection by immunodiffusionOrdered By: Rupinder Mclaughlin on 02-17-2025 A. fumigatus Ab Immune diff Ql (S) Negative Neg:<1:1 [facility] Serum Aspergillus niger anti body detection by immunodiffusionOrdered By: Rupinder Mclaughlin on 02-17-2025 A. niger Ab Immune diff Ql (S) Negative Neg:<1:1 [facility] Serum Bermuda grass IgE anti body assay (units/volume)Ordered By: Rupinder Mclaughlin on 02-17-2025 Bermuda grass IgE Qn (S) <0.10 kU/L Class 0 [facility] Serum house dust mi te IgE antibody assay (units/volume)Ordered By: Rupinder Mclaughlin on 02-17-2025 house dust mite IgE Qn (S) 1.80 kU/L High Class III [facility] Serum [place] blue grass Ig E antibody assay (units/volume)Ordered By: Rupinder Mclaughlin on 02-17-2025 [place] blue grass IgE Qn (S) <0.10 kU/L Class 0 [facility] Serum cat dander IgE antibod y assay (units/volume)Ordered By: Rupinder Mclaughlin on 02-17-2025 Cat dander IgE Qn (S) <0.10 kU/L Class 0 [facility] Serum classic neutrophil cyt oplasmic antibody assay (units/volume)Ordered By: Rupinder Mclaughlin on 02-17-2025 Neutrophil cytoplasmic Ab.classic Qn (S) <1:20 titer Neg:<1:20 [facility] Serum dog epithelium IgE ant ibody assay (units/volume)Ordered By: Rupinder Mclaughlin on 02-17-2025 Dog epithelium IgE Qn (S) <0.10 kU/L Class 0 [facility] Serum perinuclear neutrophil cytoplasmic antibody titer by immunofluorescenceOrdered By: Rupinder Mclaughlin on 02-17-2025 Neutrophil cytoplasmic Ab.perinuclear IF (S) [Titer] <1:20 titer Neg:<1:20 [facility] Comment on above: The presence of posi tive fluorescence exhibiting P-ANCA orC-ANCA patterns alone is not specific for the diagnosis ofWegener's Granulomatosis (WG) or microscopic polyangiitis.Decisions about treatment should not be based solely onANCA IFA results. The International ANCA Group Consensusrecommends follow up testing of positive sera with both NC-3 and MPO-ANCA enzyme immunoassays. As many as 5% serumsamples are positive only by EIA. Ref. AM J Clin Sokkeq3480;111:507-513. Serum white elm IgE antibody assay (units/volume)Ordered By: Rupinder Mclaughlin on 02-17-2025 White Elm IgE Qn (S) <0.10 kU/L Class 0 [facility] Serum white oak IgE antibody assay (units/volume)Ordered By: Rupinder Mclaughlin on 02-17-2025 Ellery IgE Qn (S) <0.10 kU/L Class 0 [facility] White blood cell (WBC) count Ordered By: Rupinder Mclaughlin on 02-17-2025 WBC (Bld) [#/Vol] 3.5 10*3/uL Low 4.4-11.0 [facility] Pulmonary Visit Reporton Pulmonary Visit Report [facility] [place] [address] [place] [address]. [address] [place] [address] OFFICE VISIT Date of Service: 01/23/25 MR#: [id number] Acct: [id number] Name: ALLA KIMBALL Rep #: [id number] : 1970 Provider: MERCY Mclaughlin Age/Sex: 55/F Location: [facility] [place].PMW Status: Signed Assessment and Plan Assessment and Plan (1) Cough: Status: Chronic Qualifiers: Cough type: chronic Qualified Code(s): R05.3 - Chronic cough Plan: I suspect allergic asthma. NIOX procedure performed in the office today returned within normal limits. This indicates that the patient does not require systemic corticosteroids. I am going to perform a pulmonary function test. Also reevaluating a CBC with differential as approximately 1 year ago she had elevated eosinophil count. This would indicate possible eosinophilic asthma. Also will evaluate a mini RAST test, IgE level and Aspergillus antibodies. Test results will be discussed at the follow-up visit. No change in maintenance medication until the PFT is available for review. Patient is agreeable with this plan. (2) Obesity: Status: Chronic Qualifiers: Obesity type: due to excess calories Obesity classification: adult class 1 (BMI 30 - 34.9) Serious obesity comorbidity presence: with serious comorbidity Body mass index: BMI 31.0-31.9 Qualified Code(s): E66.811 - Obesity, class 1; E66.09 - Other obesity due to excess calories; Z68.31 - Body mass index [BMI] 31.0-31.9, adult Plan: Complicates exam, plan, care and prognosis. If the allergic workup turns out to be negative, given the patient's obesity she would be at risk for GERD. This could also be a cause of chronic cough. If the allergic asthma workup is negative we will proceed with evaluating for possible GERD. Orders: Orders NIOX Today R05.9 - Cough, unspecified Allergen, Mini-Rast Today J30.9 - Allergic rhinitis, unspecified Aspergillus Antibodies Today R05.9 - Cough, unspecified CBC W/Diff, Automated Today R05.9 - Cough, unspecified Immunoglobulin E Today R05.9 - Cough, unspecified ANCA Today R05.9 - Cough, unspecified PFT Complete - DLCO, Spirometry b/a bronchodilators, lung volumes Today R05.9 - Cough, unspecified Plan Details Follow Up: 6 Weeks ([facility]) HPI HPI Comments Details: This patient presents to the office today for initial consultation regarding concern for chronic cough. She is ambulatory and currently on room air. The patient reports that about 2-3 times a year she has a flare of her chronic cough that requires treatment with prednisone. She always responds well to the use of prednisone. She does have an albuterol rescue inhaler and only utilizes it during these flares. She does admit that she waits until the cough gets really bad before she begins to utilize the albuterol. At 1 point, she was treated with Breo. She does believe that it seemed to be helpful. She has not certain why she is not on it today. She was previously taking Claritin but it ran out and I did not get more until recently she started taking the Claritin again. 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 She has never had a pulmonary function test completed. She is a lifelong never smoker. She was exposed to secondhand smoke as a child by both of her parents. Past medical family history significant for: Mother was a smoker, had COPD and CHF. Father was a smoker, also had COPD and CHF. She states that all of my siblings were smokers and quit, they all have diabetes. She has 1 daughter who has epilepsy. Currently she denies any difficulty with shortness of breath. She has a chronic dry daily cough. She has wheezing, chest congestion and sinus congestion. She denies any fever, chills or body aches. She has not had any chest pain or palpitations. sy Test results personally reviewed with the patient: CT of the chest without contrast completed in January 24, 2024. Mild volume loss in the right middle lobe with increased markings abutting the right minor fissure. This may represent scarring. No mass lesion or consolidation is seen. Normal mediastinum. No hilar regions. Normal enhanced pulmonary arteries. Minimal plaque formation in the aortic arch. Intake Vital Signs 03/09/23 08:58 01/23/25 07:54 Height 5 ft 2 in 5 ft 2 in Weight: 172 lb BMI 31.4 BP 128/74 H Blood Pressure Location Lt brachial Position Sitting Respiration 16 Pulse 72 Pulse Source Monitor Temp 97.4 F L Temperature Source Temporal Artery Pulse Oximetry (%) 97 Oxygen Delivery Method room air Intake Visit Reasons: Chronic cough Mobile Application Engineer Required: No DME Vendor: None Accompanied by: Self Is patient in pain?: No Allergies No Known Allergies Allergy (Verified 01/23/25 08:44) Medications ???Medication (more content not included)... Normal [facility] Anion gap in Serum or Plasma Ordered By: Jeronimo Howell on 01-16-2025 Anion gap [Moles/Vol] 11 mmol/L 5-15 [facility] BUN/creatinine ratioOrdered By: Jeronimo Howell on 01-16-2025 Urea nitrogen/Creatinine [Mass ratio] 18.3 mg/mg 10- [facility] Bilirubin, totalOrdered By: Jeronimo Howell on 01-16-2025 Bilirubin [Mass/Vol] 0.45 mg/dL 0.00-1.30 [facility] Calculated very low density lipoprotein (VLDL) cholesterol measurementOrdered By: Jeronimo Howell on 01-16-2025 Calculated very low density lipoprotein (VLDL) cholesterol measurement 10 mg/dL [facility] VLDL Cholesterol 10 mg/dL [facility] Carbon dioxide, total [Moles /volume] in Central venous bloodOrdered By: Jeronimo Howell on 01-16-2025 CO2 [Moles/Vol] 24.8 mmol/L 21.0-32.0 [facility] Chloride assayOrdered By: Arielle Howell on 01-16-2025 Chloride [Moles/Vol] 103 mmol/L 98-108 [facility] Comprehensive Metabolic Prof ilon 01-16-2025 Albumin [Mass/Vol] 4.3 g/dL Normal 3.5-5.0 [facility] Comment on above: Performed By: #### L 500.4100, L500.4050 ####[facility] [address] [place], [address] Albumin/Globulin [Mass ratio] 1.6 {ratio} Normal 0.9-2.4 [facility] Comment on above: Performed By: #### L 500.4100, L500.4050 ####[facility] [address] [place], [address] ALK PHOS 53 U/L Normal 35-104 [facility] Comment on above: Performed By: #### L 500.4100, L500.4050 ####[facility] [address] [place], [address] ALT [Catalytic activity/Vol] 20 U/L Normal <=34 [facility] Comment on above: Performed By: #### L 500.4100, L500.4050 ####[facility] [address] [place], [address] AST [Catalytic activity/Vol] 27 U/L Normal <=31 [facility] Comment on above: Performed By: #### L 500.4100, L500.4050 ####[facility] [address] [place], [address] Bilirubin [Mass/Vol] 0.45 mg/dL Normal 0.00-1.30 [facility] Comment on above: Performed By: #### L 500.4100, L500.4050 ####[facility] [address] [place], [address] BUN/CRE 18.3 RATIO Normal 10-20 [facility] Comment on above: Performed By: #### L 500.4100, L500.4050 ####[facility] [address] [place], [address] Calcium [Mass/Vol] 9.4 mg/dL Normal 7.6-11.0 [facility] Comment on above: Performed By: #### L 500.4100, L500.4050 ####[facility] [address] [place], [address] Chloride [Moles/Vol] 103 mmol/L Normal 98-108 [facility] Comment on above: Performed By: #### L 500.4100, L500.4050 ####[facility] [address] [place], [address] CO2 [Moles/Vol] 24.8 mmol/L Normal 21.0-32.0 [facility] Comment on above: Performed By: #### L 500.4100, L500.4050 ####[facility] [address] [place], [address] Creatinine [Mass/Vol] 0.96 mg/dL Normal 0.70-1.20 [facility] Comment on above: Performed By: #### L 500.4100, L500.4050 ####[facility] [address] [place], [address] GAP 11 Normal 5-15 [facility] Comment on above: Performed By: #### L 500.4100, L500.4050 ####[facility] [address] [place], [address] GFR/1.73 sq M.predicted among non-blacks MDRD (S/P/Bld) [Vol rate/Area] 70 mL/min/{1.73_m2} Normal >60 [facility] Comment on above: Result Comment: mL/m in/1.73m2 CKD-EPI Creatinine Equation (2020) Performed By: #### L 500.4100, L500.4050 ####[facility] [address] [place], [address] Globulin (S) [Mass/Vol] 2.6 g/dL Normal 2.2-4.2 [facility] Comment on above: Performed By: #### L 500.4100, L500.4050 ####[facility] [address] [place], [address] Glucose [Mass/Vol] 91 mg/dL Normal 70-99 [facility] Comment on above: Performed By: #### L 500.4100, L500.4050 ####[facility] [address] [place], [address] Potassium [Moles/Vol] 4.2 mmol/L Normal 3.3-5.1 [facility] Comment on above: Performed By: #### L 500.4100, L500.4050 ####[facility] [address] [place], [address] Sodium [Moles/Vol] 139 mmol/L Normal 133-145 [facility] Comment on above: Performed By: #### L 500.4100, L500.4050 ####[facility] [address] [place], [address] T PROT 6.9 g/dL Normal 5.9-8.4 [facility] Comment on above: Performed By: #### L 500.4100, L500.4050 ####[facility] [address] [place], [address] Urea nitrogen [Mass/Vol] 18 mg/dL Normal 4-19 [facility] Comment on above: Performed By: #### L 500.4100, L500.4050 ####[facility] [address] [place], [address] GFR/1.73 sq M.predicted logan g non-blacks MDRD (S/P/Bld) [Vol rate/Area]Ordered By: Jeronimo Howell on 01-16-2025 Estimated GFR (MDRD) Non-Af Amer 70 >60 [facility] Comment on above: mL/min/1.73m2 CKD-EP I Creatinine Equation (2020) Glomerular filtration rate ( GFR) estimation/1.73 sq m using serum, plasma, or whole bOrdered By: Jeronimo Howell on 01-16-2025 GFR/1.73 sq M.predicted among non-blacks MDRD (S/P/Bld) [Vol rate/Area] 70 mL/min/{1.73_m2} >60 [facility] Comment on above: mL/min/1.73m2 CKD-EP I Creatinine Equation (2020) LDL calc ser/plasOrdered By: Jeronimo Howell on 01-16-2025 Cholesterol in LDL [Mass/Vol] 90 mg/dL [facility] Comment on above: Khpzssiuyu=249-695 m g/dL & Higher Ffxg=729 mg/dL or greater LDL Cholesterol, Calculated 90 mg/dL [facility] Comment on above: Msfvmmghxz=258-401 m g/dL & Higher Vgss=245 mg/dL or greater Laboratory - Chemistry and C hemistry - challengeOrdered By: Jeronimo Howell on 01-16-2025 AST [Catalytic activity/Vol] 27 U/L <32 [facility] Lipid Profileon 01-16-2025 CHOL:HDL 2.40 Normal [facility] Comment on above: Performed By: #### L 500.4100, L500.4050 ####[facility] [address] [place], [address] Cholesterol [Mass/Vol] 172 mg/dL Normal <=200 [facility] Comment on above: Result Comment: Chol esterol level, Desirable <200 mg/dL Borderline high cholesterol 200-239 mg/dL High cholesterol >=240 mg/dL Recommendations of the NCEP Adult Treatment Panel for the following risk-cutoff thresholds for the [place] population. Performed By: #### L 500.4100, L500.4050 ####[facility] [address] [place], [address] Cholesterol in HDL [Mass/Vol] 72 mg/dL Normal [facility] Comment on above: Result Comment: [place] onal Cholesterol Education Program (NCEP) guidelines: <40 mg/dL: Low HDL-cholesterol (major risk factor for CHD) >= 60 mg/dL: High HDL-cholesterol (negative risk factor for CHD) HDL-cholesterol is affected by a number of factors, e.g. smoking, exercise, hormones, sex and age. Performed By: #### L 500.4100, L500.4050 ####[facility] [address] [place], [address] Cholesterol in LDL [Mass/Vol] 90 mg/dL Normal [facility] Comment on above: Result Comment: Bord dvgmob=084-783 mg/dL Higher Dsdb=307 mg/dL or greater Performed By: #### L 500.4100, L500.4050 ####[facility] [address] [place], [address] Cholesterol in VLDL [Mass/Vol] 10 mg/dL Normal 5-40 [facility] Comment on above: Performed By: #### L 500.4100, L500.4050 ####[facility] [address] [place], [address] Triglyceride [Mass/Vol] 50 mg/dL Normal [facility] Comment on above: Result Comment: The drugs N-Acetylcysteine and Metamizole may falsely depress this assay. Normal range: <150 mg/dL Borderline High: 150-199 mg/dL High: 200-499 mg/dL Very High: >500 mg/dL Performed By: #### L 500.4100, L500.4050 ####[facility] [address] [place], [address] Potassium (Unsp spec) [Mass/ Vol]Ordered By: Jeronimo Howell on 01-16-2025 Potassium [Moles/Vol] 4.2 mmol/L 3.3-5.1 [facility] Potassium measurement (mass/ volume)Ordered By: Jeroinmo Howell on 01-16-2025 Potassium (Unsp spec) [Mass/Vol] 4.2 mmol/L 3.3-5.1 [facility] Screening total cholesterol/ high density lipoprotein (HDL) cholesterol ratioOrdered By: Jeronimo Howell on 01-16-2025 Cholesterol.total/Cholester ol in HDL [Mass ratio] 2.40 {ratio} [facility] Serum creatinine measurement (mass/volume)Ordered By: Jeronimo Howell on 01-16-2025 Creatinine [Mass/Vol] 0.96 mg/dL 0.70-1.20 [facility] Serum globulin measurementOr dered By: Jeronimo Howell on 01-16-2025 Globulin (S) [Mass/Vol] 2.6 g/dL 2.2-4.2 [facility] Serum glucose measurement (m ass/volume)Ordered By: Jeronimo Howell on 01-16-2025 Glucose [Mass/Vol] 91 mg/dL 70-99 [facility] Serum or plasma alanine mendoza otransferase (ALT) measurementOrdered By: Jeronimo Howell on 01-16-2025 ALT [Catalytic activity/Vol] 20 U/L <35 [facility] Serum or plasma albumin maria ines urement (mass/volume)Ordered By: Jeronimo Howell on 01-16-2025 Albumin [Mass/Vol] 4.3 g/dL 3.5-5.0 [facility] Serum or plasma albumin/glob ulin mass ratioOrdered By: Jeronimo Howell on 01-16-2025 Albumin/Globulin [Mass ratio] 1.6 {ratio} 0.9-2.4 [facility] Serum or plasma alkaline carlitos sphatase measurementOrdered By: Jeronimo Howell on 01-16-2025 ALP [Catalytic activity/Vol] 53 U/L 35-104 [facility] Serum or plasma calcium maria ines urement (mass/volume)Ordered By: Jeronimo Howell on 01-16-2025 Calcium [Mass/Vol] 9.4 mg/dL 7.6-11.0 [facility] Serum or plasma cholesterol in HDL measurement (mass/volume)Ordered By: Jeronimo Howell on 01-16-2025 Cholesterol in HDL [Mass/Vol] 72 mg/dL >40 [facility] Comment on above: National Cholesterol Education Program (NCEP) guidelines:<40 mg/dL: Low HDL-cholesterol (major risk factor for CHD)>= 60 mg/dL: High HDL-cholesterol (negative risk factor for CHD)HDL-cholesterol is affected by a number of factors, e.g. smoking, exercise, hormones, sex and age. Serum or plasma cholesterol measurement (mass/volume)Ordered By: Jeronimo Howell on 01-16-2025 Cholesterol [Mass/Vol] 172 mg/dL <201 [facility] Comment on above: Cholesterol level, D esirable <200 mg/dLBorderline high cholesterol 200-239 mg/dLHigh cholesterol >=240 mg/dLRecommendations of the NCEP Adult Treatment Panel for the following risk-cutoff thresholds for the [place] population. Serum or plasma urea nitroge n measurement (mass/volume)Ordered By: Jeronimo Howell on 01-16-2025 Urea nitrogen [Mass/Vol] 18 mg/dL 4-19 [facility] Sodium levelOrdered By: Mauricio Howell on 01-16-2025 Sodium [Moles/Vol] 139 mmol/L 133-145 [facility] Total proteinOrdered By: Garrett griffith Dante on 01-16-2025 Protein [Mass/Vol] 6.9 g/dL 5.9-8.4 [facility] Triglycerides measurementOrd ered By: Jeronimojohn Howell on 01-16-2025 Triglyceride [Mass/Vol] 50 mg/dL <199 [facility] Comment on above: The drugs N-Acetylcy steine and Metamizole may falsely depress this assay. Normal range: <150 mg/dLBorderline High: 150-199 mg/dLHigh: 200-499 mg/dLVery High: >500 mg/dL SCRN MAMM (CAD)W/HUMBERTO BILATo n 12-05-2024 SCRN MAMM (CAD)W/HUMBERTO BILAT [facility] Imaging Services [address] [place], [place] [address] SCRN MAMM (CAD)W/HUMBERTO BILAT MR#: [id number] Acct: [id number] Name: ALLA KIMBALL Rep #: [id number] : 1970 F 54 From: Paco junior MD PCP: Dr. Jeronimo Howell MD Status: [facility] Study: SCRN MAMM (CAD)W/HUMBERTO BILAT Date of Exam: 11/08 Exam# [id number] Ordering Dr: Jeronimo Howell MD PROCEDURE: SCRN MAMM (CAD)W/HUMBERTO BILAT REASON FOR EXAM: F, Age 54 y/o, routine annual mammogram. No family history. TECHNIQUE: Bilateral screening digital breast tomosynthesis with 2D and 3D images. Computer aided detection. COMPARISON: Prior exam(s) dating back to September 08, 2022.. FINDINGS: There are scattered areas of fibroglandular density. Stable examination. No suspicious masses, areas of developing architectural distortion, or suspicious calcifications. BI/SCRN MAMM (CAD)W/HUMBERTO BILAT IMPRESSION: BI-RADS 1: NEGATIVE. RECOMMEND ANNUAL MAMMOGRAPHIC SCREENING. Follow-up code: Routine Follow-up The patient will be notified of the results by letter. Reading Location: [place] [address] CC: Dr. Jeronimo Howell MD Systems Checkout Mechanic: Signed Normal [facility] Absolute lymphocyte countOrd ered By: Jeronimo Giangleatha on 02-12-2024 Lymphocytes Auto (Unsp spec) [#/Vol] 1.12 10*3/uL 0.83-4.51 [facility] Automated lymphocyte count a s percentage of total leukocytesOrdered By: Jeronimo Howell on 02-12-2024 Lymphocytes/100 WBC Auto (Unsp spec) 28.7 % 19-41 [facility] Basophil percentageOrdered B y: Jeronimo Howell on 02-12-2024 Basophils/100 WBC (Bld) 1.5 % 0-1 [facility] Bilirubin [Mass/Vol] 0.50 mg/dL 0.20-1.00 [facility] Comment on above: For patients on eltr ombopag therapy, use of Dimension Benson TBIL is not recommended. Chloride [Moles/Vol] 107 mmol/L 98-107 [facility] Cholesterol [Mass/Vol] 225 mg/dL <200 [facility] Comment on above: <200 mg/dL Desirable 200-240 mg/dL Borderline >240 mg/dL High Risk Eosinophils/100 WBC (Bld) 6.2 % 0-5 [facility] Glucose [Mass/Vol] 92 mg/dL 74-106 [facility] Hemoglobin (Bld) [Mass/Vol] 14.1 g/dL 12.0-15. 0 [facility] Monocytes/100 WBC (Bld) 9.7 % 0-10 [facility] Neutrophils (Bld) [#/Vol] 2.1 10*3/uL 2.0-7.7 [facility] Neutrophils/100 WBC (Bld) 53.6 % 47-70 [facility] Potassium [Moles/Vol] 3.6 mmol/L 3.5-5.1 [facility] Protein [Mass/Vol] 7.0 g/dL 6.4-8.2 [facility] Sodium [Moles/Vol] 141 mmol/L 136-145 [facility] Triglyceride [Mass/Vol] 75 mg/dL <199 [facility] Comment on above: The drugs N-Acetylcy steine and Metamizole may falsely depress this assay.Serum Triglycerides Reference Interval Normal <150 mg/dL Borderline high 150 - 199 mg/dL High 200 - 499 mg/dL Very High > or = 500 mg/dL WBC (Bld) [#/Vol] 3.9 10*3/uL 4.4-11.0 [facility] Determination of erythrocyte mean corpuscular volume (MCV)Ordered By: Jeronimo Howell on 02-12-2024 MCV (RBC) [Entitic vol] 90.8 fL 81-99 [facility] Erythrocyte distribution wid th ratioOrdered By: Jeronimo Howell on 02-12-2024 Erythrocyte distribution width (RBC) [Ratio] 11.9 % 11.6-14.6 [facility] Erythrocyte distribution wid th standard deviationOrdered By: Jeronimo Howell on 02-12-2024 Erythrocyte distribution width (RBC) [Entitic vol] 39.6 fL 35.1-43.9 [facility] Hematocrit Auto (Bld) [Volum e fraction]Ordered By: Jeronimo Howell on 02-12-2024 Hematocrit (Bld) [Volume fraction] 41.7 % 37-47 [facility] Immature granulocytes/100 WB C Auto (Bld)Ordered By: Jeronimo Howell on 02-12-2024 Immature granulocytes/100 WBC (Bld) 0.300 % 0.0-0.9 [facility] Comment on above: IG% - Immature Granu locytes (promyelocytes, myelocytes and metamyelocytes) > 1% indicates that a LEFT SHIFT is Present. Laboratory - Chemistry and C hemistry - challengeOrdered By: Jeronimo Howell on 02-12-2024 Albumin/Globulin [Mass ratio] 1.1 {ratio} 0.9-2.4 [facility] ALP [Catalytic activity/Vol] 52 U/L 45-117 [facility] ALT [Catalytic activity/Vol] 28 U/L 13-56 [facility] Cholesterol in HDL [Mass/Vol] 72 mg/dL >40 [facility] Comment on above: The drugs N-Acetylcy steine and Metamizole may falsely depress this assay. Reference Range HDL <40 mg/dL Low HDL Cholesterol HDL >or= 60 mg/dL High HDL Cholesterol Cholesterol in LDL [Mass/Vol] 138 mg/dL 0-130 [facility] CO2 [Moles/Vol] 29.0 mmol/L 21.0-32.0 [facility] Globulin (S) [Mass/Vol] 3.4 g/dL 2.2-4.2 [facility] Urea nitrogen/Creatinine [Mass ratio] 13.7 mg/mg 10-20 [facility] Laboratory - Hematology and Cell countsOrdered By: Jeronimo Howell on 02-12-2024 MCH (RBC) [Entitic mass] 30.7 pg 27.0-32.0 [facility] MCHC (RBC) [Mass/Vol] 33.8 g/dL 32-36 [facility] Nucleated RBC/100 WBC (Bld) [Ratio] 0 % 0-5 [facility] Platelet mean volume (Bld) [Entitic vol] 10.6 fL 6.2-12.0 [facility] Platelets (Bld) [#/Vol] 263 10*3/uL 150-450 [facility] No Panel InformationOrdered By: Jeronimo Howell on 02-12-2024 Estimated GFR (MDRD) Amer 78 mL/min >60 [facility] Comment on above: GFR Calc Estimated GFR (MDRD) Non-Af Amer 65 mL/min >60 [facility] Comment on above: Non- GFR Calc VLDL Cholesterol 15 mg/dL 5-40 [facility] RBC Auto (Bld) [#/Vol]Ordere d By: Jeronimo Howell on 02-12-2024 RBC (Bld) [#/Vol] 4.59 10*6/uL 4.2-5.4 [facility] Serum or plasma calcium maria ines urement (mass/volume)Ordered By: Jeronimo Howell on 02-12-2024 Calcium [Mass/Vol] 9.0 mg/dL 8.5-10.1 [facility] Serum or plasma creatinine m easurement (mass/volume)Ordered By: Jeronimo Howell on 02-12-2024 Creatinine [Mass/Vol] 0.95 mg/dL 0.55-1.02 [facility] Comment on above: The validity of the calculated GFR & GFRAA in patients over 70 years has not been determined. Clinical correlation is essential. Serum or plasma urea nitroge n measurement (mass/volume)Ordered By: Jeronimo Howell on 02-12-2024 Urea nitrogen [Mass/Vol] 13 mg/dL 7-18 [facility] Thin prep Papanicolaou smear with manual screeningOrdered By: Jeronimo Howell on 02-12-2024 Thin prep Papanicolaou smear with manual screening 3.6 g/dL 3.2-5.0 [facility] Thin prep Papanicolaou smear with manual screening 27 U/L 15-37 [facility] Thin prep Papanicolaou smear with manual screening 5 5-15 [facility] 36on 10-31-2023 36 S: [facility] with complaint of coughing. B: Ongoing 10 days. Went to Urgent care 8 days ago was given prednisone and tessalon pearls she states she usually takes cough medicine with codeine and inhaler but her inhaler has . A: Patient c/o gets this every year asthmatic bronchitis. Denies shortness of breath, difficulty breathing, fever, chest pain, running nose or wheezing. Has taken Robitussin for cough. R: We do not schedule for this office please call patient to make an appointment. Home Care advice given. Patient instructed to call back with worsening symptoms, concerns or questions. Patient verbalized understanding. Message to the office for review by the provider and needs recommendation from Provider for treatment going forward. Reason for Disposition SEVERE coughing spells (e.g., whooping sound after coughing, vomiting after coughing) Protocols used: [facility] 36 S: The patient is calling the [facility]: Symptoms/Concerns: Coughing for about 8-10 days has been to urgent care, got steroid and pearls did not help more asthmatic B: She hung up prior to talking with a nurse R: Left a message on an identified line for her to call back if she continues to need assistance. Reason for Disposition ? Message left on unidentified voice mail. Phone number verified. Protocols used: No Contact or Duplicate Contact [facility]PS[facility] Basophil percentageon 2021 Bilirubin [Mass/Vol] 0.40 mg/dL 0.20-1.00 [facility] Work Phone: Comment on above: For patients on eltr ombopag therapy, use of Dimension Benson TBIL is not recommended. Chloride [Moles/Vol] 103 mmol/L 98-107 [facility] Work Phone: Cholesterol [Mass/Vol] 191 mg/dL <200 [facility] Work Phone: Comment on above: <200 mg/dL Desirable 200-240 mg/dL Borderline >240 mg/dL High Risk Glucose [Mass/Vol] 87 mg/dL 74-106 [facility] Work Phone: Potassium [Moles/Vol] 4.0 mmol/L 3.5-5.1 [facility] Work Phone: Protein [Mass/Vol] 7.2 g/dL 6.4-8.2 [facility] Work Phone: Sodium [Moles/Vol] 138 mmol/L 136-145 [facility] Work Phone: Triglyceride [Mass/Vol] 50 mg/dL <199 [facility] Work Phone: Comment on above: The drugs N-Acetylcy steine and Metamizole may falsely depress this assay.Serum Triglycerides Reference Interval Normal <150 mg/dL Borderline high 150 - 199 mg/dL High 200 - 499 mg/dL Very High > or = 500 mg/dL Laboratory - Chemistry and C hemistry - challengeon 07-21-2022 ALP [Catalytic activity/Vol] 59 U/L 45-117 [facility] Work Phone: ALT [Catalytic activity/Vol] 24 U/L 13-56 [facility] Work Phone: CO2 [Moles/Vol] 29.0 mmol/L 21.0-32.0 [facility] Work Phone: Globulin (S) [Mass/Vol] 3.6 g/dL 2.2-4.2 [facility] Work Phone: Urea nitrogen/Creatinine [Mass ratio] 15.5 mg/mg 10-20 [facility] Work Phone: No Panel Informationon 07-21 Estimated GFR (MDRD) Amer 77 mL/min >60 [facility] Work Phone: Comment on above: GFR Calc Estimated GFR (MDRD) Non-Af Amer 64 mL/min >60 [facility] Work Phone: Comment on above: Non- GFR Calc Serum or plasma albumin maria ines urement (mass/volume)on 07-21-2022 Albumin [Mass/Vol] 3.6 g/dL 3.2-5.0 [facility] Work Phone: Serum or plasma albumin/glob ulin mass ratioon 07-21-2022 Albumin/Globulin [Mass ratio] 1.0 {ratio} 0.9-2.4 [facility] Work Phone: Serum or plasma calcium maria ines urement (mass/volume)on 07-21-2022 Calcium [Mass/Vol] 9.3 mg/dL 8.5-10.1 [facility] Work Phone: Serum or plasma cholesterol in HDL measurement (mass/volume)on 07-21-2022 Cholesterol in HDL [Mass/Vol] 65 mg/dL >40 [facility] Work Phone: Comment on above: The drugs N-Acetylcy steine and Metamizole may falsely depress this assay. Reference Range HDL <40 mg/dL Low HDL Cholesterol HDL >or= 60 mg/dL High HDL Cholesterol Serum or plasma cholesterol in VLDL measurement (mass/volume)on 07-21-2022 Cholesterol in VLDL [Mass/Vol] 10 mg/dL 5-40 [facility] Work Phone: Serum or plasma creatinine m easurement (mass/volume)on 07-21-2022 Creatinine [Mass/Vol] 0.97 mg/dL 0.55-1.02 [facility] Work Phone: Comment on above: The validity of the calculated GFR & GFRAA in patients over 70 years has not been determined. Clinical correlation is essential. Serum or plasma low density lipoprotein (LDL) cholesterol measurement (mass/volume)on 07-21-2022 Cholesterol in LDL [Mass/Vol] 116 mg/dL 0-130 [facility] Work Phone: Serum or plasma urea nitroge n measurement (mass/volume)on 07-21-2022 Urea nitrogen [Mass/Vol] 15 mg/dL 7-18 [facility] Work Phone: Thin prep Papanicolaou smear with manual screeningon 07-21-2022 Thin prep Papanicolaou smear with manual screening 22 U/L 15-37 [facility] Work Phone: Thin prep Papanicolaou smear with manual screening 6 5-15 [facility] Work Phone: MG Breast Tomosynthesis Scr Blon 08-27-2019 MG Breast Tomosynthesis Scr Bl Patient Name: ALLA KIMBALL Mammography Exam Date/Time 08/27/2019 11:26:30 EDT Exam MG Breast Tomosynthesis BI Scr Ordering Physician CATHY AMBROSE CYNTHIA LYNN Accession Number [id number] CPT4 Codes 69957 (MG Breast Tomosynthesis Scr Bl), 30615 (MG MAMMO 2D SCREENING) Reason For Exam screening Report PATIENT HISTORY: Patient is postmenopausal. No known family history of cancer. Took hormonal contraceptives for 15 years. Patient has never smoked. Patient's BMI is 30.2. TIME SINCE LAST MAMMOGRAM: Last mammogram was performed 1 year and 5 months ago. REASON FOR EXAM: screening, asymptomatic. PROCEDURE: MG BREAST TOMOSYNTHESIS BL SCR: AUGUST 27, 2019 - 2D/3D Procedure 3D Bilateral CC and MLO view(s) were taken. 2D Bilateral CC and MLO view(s) were taken. Prior study comparison: April 11, 2018, bilateral MG breast tomosynthesis bl scr performed at [facility]. August 02, 2013, bilateral screening mammogram performed at [facility]. TISSUE DENSITY: There are scattered fibroglandular densities. . FINDINGS: No suspicious masses, architectural distortions or suspiciously clustered microcalcifications are identified. There is no evidence of skin thickening or nipple retraction. There are no significant changes when compared with prior studies. Markings on images: BB's = Nipples; skin lesions Open conf[place] coos = Palpable Line = Scar 2D digital mammography and tomosynthesis imaging were performed and reviewed with CAD. ASSESSMENT: Category 1 Negative No mammographic evidence of malignancy. RECOMMENDATION: Routine screening mammogram of both breasts in 1 year. . Report Dictated on Cancer Risk Assessment: This risk assessment is based on patient provided information collected in a risk survey taken at the time of this examination. Lifetime breast cancer risk: 9.5% - If greater than or equal to 20%, consider annual mammogram and annual screening Breast MRI or follow up in high risk clinic. Is the patient at elevated risk based on the HBOC criteria? No (Hereditary Breast and Ovarian Cancer) - If yes, consider genetic counseling and testing with high risk follow up. HNPCC mutation risk (Funez Syndrome): 1% - if greater than or equal to 5%, consider genetic counseling, testing and screening colonoscopy. Final Signed Date and Time: 08/27/2019 1:21 pm Signed by: MD PAT, [facility] Surgical Pathologyon [facility] Surgical Pathology [id number] [facility] PATHOLOGY AND LABORATORY MEDICINE [address] [place] [phone] Fax - FINAL SURGICAL PATHOLOGY REPORT NAME: ALLA KIMBALL : 1970 48 Y F BILLING NO.: [id number] LOCATION: [facility] PROCEDURE 12/17/2018 DATE: SURGEON: KELVIN KENYON DO RECEIVED 12/18/2018 DATE: ATTENDING: KELVIN KENYON DO REPORT DATE: 12/19/2018 COPIES TO: DIAGNOSIS: COLON, CECUM, POLYPECTOMY - TUBULAR ADENOMA. [id number] Signature> BRISA EDOUARD M.D. CLINICAL INFORMATION: Screening for colorectal malignant neoplasm SPECIMEN: COLON POLYP, BIOPSY GROSS DESCRIPTION: Colon, cecum polyp Received in formalin are three segments of claudio tissue 0.1 to 0.4 cm. Submitted in toto. (3 ns, 1) JCK/JULIO CÉSAR Disclaimer: The following statement applies to all immunohistochemistry, in situ hybridization, molecular studies, and immunofluorescence testing. The use of one or more reagents in the above tests is regulated as an analyte specific reagent (ASR). These tests were developed and their performance characteristics determined by the clinical laboratories of [facility]. They have not been cleared by the US Food and Drug Administration (FDA). The FDA has determined that such clearance or approval is not necessary. All the above immunostains were performed on paraffin embedded tissue. Appropriate positive and negative controls (where applicable) were run in parallel with the patient's specimen; these controls showed expected staining pattern, with acceptable intensity of staining. Immunohistochemical assays have not been validated on decalcified tissues. Results should be interpreted with caution given the raised possibility of false negativity on decalcified specimens. Case reviewed at [facility] [address] [place] [address]. DEPARTMENT OF PATHOLOGY AND LABORATORY MEDICINE [place], [place] [address] [facility] Vital Signs Date Time Vital Sign Value Performing Clinician Carlyle pereira 07-31-2025 07:29-0400 Body height 157.[address] Jeronimo Howell MD Work Phone: [facility] 07-31-2025 07:29-0400 Body mass index (BMI) [Ratio] 31.8 kg/m2 Dr. Jeronimo Howell MD Work Phone: 2(729)[phone] [address] 07-31-2025 07:29-0400 Body temperature 97.4 [degF] Dr. Jeronimo Howell MD Work Phone: 9(706)[phone] [address] 07-31-2025 07:29-0400 Body weight 78.[address] Jeronimo Howell MD Work Phone: 5(141)[phone] [address] 07-31-2025 07:29-0400 Diastolic blood pressure 73 mm[Hg] Dr. Jeronimo Howell MD Work Phone: [facility] 07-31-2025 07:29-0400 Heart rate 92 /min Dr. Jeronimo Howell MD Work Phone: 7(960)[phone] [address] 07-31-2025 07:29-0400 Respiratory rate 18 /min Dr. Jeronimo Howell MD Work Phone: 9(423)[phone] [address] 07-31-2025 07:29-0400 SaO2% (BldA) [Mass fraction] 98 % Dr. Jeronimo Howell MD Work Phone: [facility] 07-31-2025 07:29-0400 Systolic blood pressure 119 mm[Hg] Dr. Jeronimo Howell MD Work Phone: 6(120)[phone] [address] 05-01-2025 07:20-0400 Body mass index (BMI) [Ratio] 31.4 kg/m2 Dr. Jeronimo Howell MD Work Phone: 5(066)[phone] [place] [address] 05-01-2025 07:20-0400 Body temperature 97.4 [degF] Dr. Jeronimo Howell MD Work Phone: [facility] 05-01-2025 07:20-0400 Body weight 78.[address] Jeronimo Howell MD Work Phone: [facility] 05-01-2025 07:20-0400 Diastolic blood pressure 83 mm[Hg] Dr. Jeronimo Howell MD Work Phone: [facility] 05-01-2025 07:20-0400 Heart rate 73 /min Dr. Jeronimo Howell MD Work Phone: [facility] 05-01-2025 07:20-0400 Respiratory rate 16 /min Dr. Jeronimo Howell MD Work Phone: [facility] 05-01-2025 07:20-0400 SaO2% (BldA) [Mass fraction] 97 % Dr. Jeronimo Howell MD Work Phone: [facility] 05-01-2025 07:20-0400 Systolic blood pressure 134 mm[Hg] Dr. Jeronimo Howell MD Work Phone: [facility] 02-27-2025 07:44-0400 Body height 157.[address] Jeronimo Howell MD Work Phone: [facility] 02-27-2025 07:44-0400 Body mass index (BMI) [Ratio] 31.6 kg/m2 Dr. Jeronimo Howell MD Work Phone: [facility] 02-27-2025 07:44-0400 Body temperature 97.4 [degF] Dr. Jeronimo Howell MD Work Phone: [facility] 02-27-2025 07:44-0400 Body weight 78.[address] Jeronimo Howell MD Work Phone: [facility] 02-27-2025 07:44-0400 Diastolic blood pressure 72 mm[Hg] Dr. Jeronimo Howell MD Work Phone: [facility] 02-27-2025 07:44-0400 Heart rate 71 /min Dr. Jeronimo Howell MD Work Phone: [facility] 02-27-2025 07:44-0400 Respiratory rate 14 /min Dr. Jeronimo Howell MD Work Phone: [facility] 02-27-2025 07:44-0400 SaO2% (BldA) [Mass fraction] 98 % Dr. Jeronimo Howell MD Work Phone: [facility] 02-27-2025 07:44-0400 Systolic blood pressure 113 mm[Hg] Dr. Jeronimo Howell MD Work Phone: [facility] 01-23-2025 07:54-0400 Body mass index (BMI) [Ratio] 31.4 kg/m2 Dr. Jeronimo Howell MD Work Phone: [facility] 01-23-2025 07:54-0400 Body temperature 97.4 [degF] Dr. Jeronimo Howell MD Work Phone: [facility] 01-23-2025 07:54-0400 Body weight 78.[address] Jeronimo Howell MD Work Phone: [facility] 01-23-2025 07:54-0400 Diastolic blood pressure 74 mm[Hg] Dr. Jeronimo Howell MD Work Phone: [facility] 01-23-2025 07:54-0400 Heart rate 72 /min Dr. Jeronimo Howell MD Work Phone: [facility] 01-23-2025 07:54-0400 Respiratory rate 16 /min Dr. Jeronimo Howell MD Work Phone: [facility] 01-23-2025 07:54-0400 SaO2% (BldA) [Mass fraction] 97 % Dr. Jeronimo Howell MD Work Phone: [facility] 01-23-2025 07:54-0400 Systolic blood pressure 128 mm[Hg] Dr. Jeronimo Howell MD Work Phone: [facility] 10-24-2023 07:15-0500 Body temperature 98.2 [degF] Dr. Jeronimo Howell Work Phone: [facility] 10-24-2023 07:15-0500 Diastolic blood pressure 82 mm[Hg] Dr. Jeronimo Howell Work Phone: [facility] 10-24-2023 07:15-0500 Heart rate 91 /min Dr. Jeronimo Howell Work Phone: [facility] 10-24-2023 07:15-0500 Respiratory rate 12 /min Dr. Jeronimo Howell Work Phone: [facility] 10-24-2023 07:15-0500 SaO2% (BldA) [Mass fraction] 95 % Dr. Jeronimo Howell Work Phone: [facility] 10-24-2023 07:15-0500 Systolic blood pressure 134 mm[Hg] Dr. Jeronimo Howell Work Phone: [facility] Encounters Encounter Date Encounter Type Care Provider Facility Start: 10-20-2025 ambulatory [facility] Facilit y:[facility] Start: 09-04-2025 End: 09-04-2025 ambulatory [facility] Facility:[facility] Start: 07-31-2025 End: 07-31-2025 Patient encounter procedure Rupinder MADRID -[facility] Work Phone: Start: 07-31-2025 End: 07-31-[address] Jeronimo Howell MD Work Phone: -[facility] Start: 05-01-2025 End: 05-01-[address] 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 Jeronimo Howell MD Work Phone: [facility] Work Phone: Start: 02-17-2025 End: 02-17-2025 Patient encounter procedure Rupinder Mclaughlin NP-C -Laboratory, [place] Work Phone: Start: 02-17-2025 End: 02-17-2025 ambulatory Rupinder Mclaughlin NP Facility:[facility] Start: 02-06-2025 End: 02-06-[address] Jeronimo Howell MD Work Phone: [facility] Work Phone: Start: 02-06-2025 End: 02-06-2025 Patient encounter procedure Rupinder Mclaughlin STORE CLERK CHECKER-C -Pulmonary Services/Neurology Work Phone: Start: 02-06-2025 End: 02-06-2025 ambulatory Rupinder Mclaughlin NP Facility:[facility] Start: 01-23-2025 End: 01-23-2025 Patient encounter procedure Rupinder Mclaughlin STORE CLERK CHECKER-C -[facility] Work Phone: Start: 01-23-2025 End: 01-23-2025 ambulatory Jeronimo Howell Facility:[facility] Start: 01-16-2025 End: 01-16-[address] Jeronimo Howell MD Work Phone: [facility] Work Phone: Start: 01-16-2025 End: 01-16-[address] Jeronimo Howell MD -Laboratory, [place] Work Phone: Start: 01-16-2025 End: 01-16-2025 ambulatory Jeronimo Howell Facility:[facility] Start: 12-05-2024 End: 12-05-[address] Jeronimo Howell MD -Outpatient Breast Imaging Work Phone: Start: 12-05-2024 End: 12-05-2024 ambulatory Jeronimo Howell Facility:[facility] Start: 02-12-2024 End: 02-12-[address] Jeronimo Howell Work Phone: [facility] Work Phone: Start: 02-12-2024 End: 02-12-[address] Jeronimo Howell Work Phone[facility] Work [facility] Start: 01-24-2024 End: 01-24-[address] Jeronimo Howell Work Phone: [facility] Work Phone: Start: 01-24-2024 End: 01-24-[address] Jeronimo Howell Work Phone: [facility]-Cat Scan, [facility] Work Phone: Start: 11-16-2023 End: 11-16-[address] Jeronimo Howell Work Phone: [facility] Work Phone: Start: 11-16-2023 End: 11-16-[address] Jeronimo Howell Work Phone: [facility] Work Phone: Start: 10-31-2023 ambulatory [facility] Start: 10-31-2023 Patient encounter [facility] Start: 10-24-2023 End: 12-19-[address] Jeronimo Howell Work Phone: [facility] Work Phone: Start: 07-21-2022 End: 07-21-2022 ambulatory [facility] Work Phone: Start: 07-21-2022 End: 07-21-2022 Patient encounter procedure [facility]-Laboratory, [place] Start: 08-27-2019 End: 08-27-2019 Subsequent hospital visit by physician Shari Ambrose Other Phone: [facility] Comment on above: Arrived Procedures Date Procedure Procedure Detail Performing Clinician Start: 03-06-[address] Jeronimo Howell MD Work Phone: Comment on above: Antibody Result: Int erpretationNon-Reactive: Non- ImmuneReactive: ImmuneThe following results were obtained with the [employer] Rubella IgG assay. Results from assays of other manufacturers cannot be used interchangeably. Start: 02-17-[address] Jeronimo Howell MD Work Phone: Start: 02-17-[address] Cathy Howell MD Work Phone: Comment on above: The atypical pANCA p attern has been observed in asignificant percentage of patients with ulcerative colitis,primary sclerosing cholangitis and autoimmune hepatitis. Start: 02-17-[address] Jeronimo Howell MD Work Phone: Start: 02-17-2025 House dust mite (Df) RAST Dr. Jeronimo Howell MD Work Phone: Start: 02-17-2025 Mouse urine proteins RAST Dr. Jeronimo Howell MD Work Phone: Comment on above: Performed at: [address] [id number] Director: Mathew Crowley MD, Phone: [phone] Start: 02-17-2025 Plantain (Malawian) RAST Dr. Jeronimo Howell MD Work Phone: Start: 12-05-2024 Screening mammography Nadeen Howell MD Work Phone: Start: 01-24-2024 CT of chest without contrast Dr. Jeronimo Howell Work Phone: Start: 11-16-2023 Plain chest X-ray Dr. Terrell Howell Work Phone: Plan of Treatment Date Care Activity Detail Author Start: 12-17-2028 Colon cancer screen colonoscopy Colon cancer screen colonoscopy [place], [place] Start: 02-17-2025 IgE [Units/volume] i n Serum or Plasma [facility] Start: 02-17-2025 [facility] Start: 02-06-2025 Measurement of respiratory function [facility] Start: 04-11-2020 Breast cancer screen Breast cancer s creen [place], [place] Start: 07-07-2019 Influenza vaccination Flu vaccine (# 1) [place], [place] Start: 01-18-2018 Shingles Vaccine (1 of 2) Russell gles Vaccine (1 of 2) [place], [place] Start: 2008 Diabetes screen Diabetes screen [place], [place] Start: 2008 Lipid screen Lipid screen [place], [place] Start: 01-18-1989 Cervical cancer screen Cervical canc er screen [place], [place] Start: 01-18-1987 DTaP/Tdap/Td vaccine (1 - Tdap) DTaP/Tdap/Td vaccine (1 - Tdap) [place], [place] Start: 01-18-1983 HIV screen HIV screen [place], [place] Alternaria alternata RAST [facility] Swedish house dust mite IgE Ab [Units/volume] in Serum [facility] Bermuda grass IgE Ab [Units/volume] in Serum [facility] Cat dander IgE Ab [Units/volume] in Serum [facility] CBC W Auto Different ial panel - Blood [facility] Common Ragweed IgE A b [Units/volume] in Serum [facility] Dog epithelium IgE A b [Units/volume] in Serum [facility] house dust mite IgE Ab [Units/volume] in Serum [facility] IgE [Units/volume] i n Serum or Plasma [facility] Kentucky blue grass IgE Ab [Units/volume] in Serum [facility] Measurement of Aspergillus flavus antibody [facility] Measurement of Aspergillus fumigatus antibody [facility] Measurement of Aspergillus niger antibody [facility] Mouse urine proteins RAST [facility] Neutrophil cytoplasm ic Ab.classic [Units/volume] in Serum [facility] P-ANCA measurement [facility] ([place]) RAST [facility] End: 08-27-2019 Screening digital breast tomosynthesis bi Gillian Humberto Digital Screen Bilateral Imaging Routine Once for 1 Occurrences starting 08/27/2019 until 08/27/2019 [facility] [place] Comment on above: Once for 1 Occurrenc es starting 08/27/2019 until 08/27/2019 Screening digital br east tomosynthesis bi Gillian Humberto Digital Screen Bilateral Imaging Routine 08/27/2019 10:57 AM EDT [facility] [place]m IgE Ab [Units/volume] in Serum [facility] Ellery IgE Ab [Units/volume] in Serum [facility] Immunizations Immunization Date Immunization Notes Care Provider Fa [facility] 08-20-2021 Covid (Pfizer) Dr. Jeronimo foster MD Work Phone: [facility] 07-30-2021 Covid (Pfizer) Dr. Jeronimo foster MD Work Phone: [facility] Payers Date Payer Category Payer Unknown [id number] 2024 Self-pay [id number] 2024 Unknown [id number] Unknown [id number] 2.16.8 [id number] Unknown [id number] 2.16.8 [id number] Unknown [id number] 2.16.8 [id number] Unknown [id number] 2.16.8 [id number] Unknown [id number] 2.16.8 [id number] Unknown [id number] 2.16.8 [id number] Unknown [id number] 2.16.8 [id number] Unknown [id number] 2.16.8 [id number] Unknown [id number] 2.16.8 [id number] Unknown [id number] 2.16.8 [id number] Unknown [id number] 2.16.8 [id number] Unknown [id number] 2.16.8 [id number] Social History Date Type Detail Facility Start: 12-17-2018 End: 10-24-2023 Tobacco smoking status NHIS Unknown if ever smoked [facility] Start: 1970 Sex Assigned At Not on file [place] Start: 1970 Sex Assigned At Female [facility] Gender identity Not on file [facility] Start: 01-23-2025 Tobacco smoking stat us KYIS Never smoked tobacco (finding) [facility] Start: 01-25-2025 End: 02-20-2025 Sex Female (finding) [facility] Clinical Notes 10-31-2023 to 07-31-2025 Note Date & Type Note Facility 07-31-2025 Progress note [facility] 05-01-2025 Evaluation note Diagnosis Onset Date Resolution Acid reflux chronic May 01 7:40am Cough variant asthma chronic May 01, 2025 7:40am Acid reflux chronic July 8:05am Cough variant asthma chronic Jul 8:05am [facility] Work Phone: 1(392) 489-712103-20-2025 Evaluation note* Diagnosis Onset Date Resolution Status Admit Date Cough chronic January 23 8:32am Obesity chronic January 23 8:32am [facility] Work Phone: 1(491) 259-490003-20-2025 Evaluation note* Diagnosis Onset Date Resolution Status Admit Date Cough chronic January 23 8:32am Obesity chronic January 23 8:32am Cough variant asthma suspected Apri l 2024 7:42am Acid reflux acute May 01 7:40am Cough variant asthma suspected May 01, 2025 7:40am [facility] Work Phone: 1(496) 143-609012-26-2023 Telephone encounter Note* Telephone Encounter - Sammi Coley RN - 10/31/2023 10:13 AM EST S: Patient called the clinical access center with complaint of coughing. B: Ongoing 10 days. Went to Urgent care 8 days ago was given prednisone and tessalon pearls she states she usually takes cough medicine with codeine and inhaler but her inhaler has . A: Patient c/o gets this every year asthmatic bronchitis. Denies shortness of breath, difficulty breathing, fever, chest pain, running nose or wheezing. Has taken Robitussin for cough. R: We do not schedule for this office please call patient to make an appointment. Home Care advice given. Patient instructed to call back with worsening symptoms, concerns or questions. Patient verbalized understanding. Message to the office for review by the provider and needs recommendation from Provider for treatment going forward. Reason for Disposition SEVERE coughing spells (e.g., whooping sound after coughing, vomiting after coughing) Protocols used: [id number] [id number] Miscellaneous Notes* Telephone Encounter - Sammi Coley RN - 10/31/2023 10:13 AM EST S: Patient called the clinical access center with complaint of coughing. B: Ongoing 10 days. Went to Urgent care 8 days ago was given prednisone and tessalon pearls she states she usually takes cough medicine with codeine and inhaler but her inhaler has . A: Patient c/o gets this every year asthmatic bronchitis. Denies shortness of breath, difficulty breathing, fever, chest pain, running nose or wheezing. Has taken Robitussin for cough. R: We do not schedule for this office please call patient to make an appointment. Home Care advice given. Patient instructed to call back with worsening symptoms, concerns or questions. Patient verbalized understanding. Message to the office for review by the provider and needs recommendation from Provider for treatment going forward. Reason for Disposition SEVERE coughing spells (e.g., whooping sound after coughing, vomiting after coughing) Protocols used: [id number] documented in this [facility]12-26-2023 Telephone encounter Note* Telephone Encounter - Mayra Molina RN - 10/31/2023 10:05 AM EST S: The patient is calling the [facility]: Symptoms/Concerns: Coughing for about 8-10 days has been to urgent care, got steroid and pearls did not help more asthmatic B: She hung up prior to talking with a nurse R: Left a message on an identified line for her to call back if she continues to need assistance. Reason for Disposition Message left on unidentified voice mail. Phone number verified. Protocols used: No Contact or Duplicate Contact [id number] [id number] Miscellaneous Notes* Telephone Encounter - Mayra Colorado RN - 10/31/2023 10:05 AM EST S: The patient is calling the [facility]: Symptoms/Concerns: Coughing for about 8-10 days has been to urgent care, got steroid and pearls did not help more asthmatic B: She hung up prior to talking with a nurse R: Left a message on an identified line for her to call back if she continues to need assistance. Reason for Disposition Message left on unidentified voice mail. Phone number verified. Protocols used: No Contact or Duplicate Contact [id number] documented in this [facility] CenterEvaluation noteNo assessment information availableWKettering Health Work Phone: Hospital Discharge instructionsAmbulatory Orders* General Surgery Location: None Selected [facility] Work Phone: Progress note Author Rupinder Mclaughlin [facility] Services Note Date/Time July 31, 2025 8:29am [facility] [address] [place] [address] OFFICE VISIT Date of Service: 07/31/25 MR#: [id number] Acct: [id number] Name: ALLA KIMBALL Rep #: [id number] : 1970 Provider: MERCY Mclaughlin Age/Sex: 55/F Location: [facility] [place] [facility] Status: Signed Assessment and Plan Assessment and Plan (1) Cough variant asthma: Status: Chronic Plan: Stable, no signs of exacerbation of asthma today. No change in maintenance medications, well-controlled on Pulmicort and Zyrtec. No additional testing at this time. Contact the office with any signs of new or worsening symptoms. Follow-up in 1 year. (2) Acid reflux: Status: Chronic Qualifiers: Esophagitis presence: esophagitis presence not specified Qualified Code(s): K21.9 - Gastro-esophageal reflux disease without esophagitis Plan: She reports coughing that occurs after eating or drinking. Symptoms are concerning for gastro esophageal reflux disease, therefore I am sending her to [facility] to be evaluated. Orders: Referrals General Surgery K21.9 - Gastro-esophageal reflux disease without esophagitis Medications: Refilled budesonide 180 mcg/actuation (Pulmicort Flexhaler) 2 inhalations inhalation BID 1 ea 11RF Plan Details Additional Comments: This note was generated with [employer]by[employer]. dictation software. It may contain incorrectwords, spelling, and punctuation that were not noted in checking the note beforesigning. 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 She is ambulatory and on room air. She has not recently been seen in the ED or urgent care for any respiratory illness. She has not recently required any antibiotics or prednisone for any breathing problems. She is compliant with the use of Pulmicort twice daily. She reports rinsing hermouth out after each use. She denies any medication side effect such as sore throat or thrush. She does not utilize albuterol frequently. She is on Zyrtec daily. She is a lifelong never smoker. She denies any shortness of breath. She has a chronic dry daily cough. The cough is common with eating and drinking. She denies any wheezing, chest tightness, chest pain or palpitations. She denies any fever, chills or body aches. Intake Vital Signs 05/01/25 07:20 07/31/25 07:29 Height 5 ft 2 in 5 ft 2 in Weight: 174 lb BMI 31.8 BP 119/73 Blood Pressure Location Lt brachial Position Sitting Respiration 18 Pulse 92 Pulse Source Monitor Temp 97.4 F L Temperature Source Temporal Artery Pulse Oximetry (%) 98 Oxygen Delivery Method room air Intake Visit Reasons: 3 M FU Chief Complaint: cough, chest congestion, yellow mucus Mobile Application Engineer Required: No DME Vendor: n/a Accompanied by: Self Is patient in pain?: No Allergies No Known Allergies Allergy (Verified 07/31/25 08:08) Medications ?Medication ?Instructions ?Recorded ?Confirmed ?Type citalopram 40 mg tablet 40 mg PO DAILY 10/30/2007/08 History cetirizine 10 mg tablet (Zyrtec) 10 mg PO DAILY 07/31/25 History cholecalciferol (vitamin D3) 50 50 mcg PO DAILY 07/31/25 History mcg (2,000 unit) capsule [id number] 8 mg-folic 400 1 tab PO DAILY 11/1607/31/25 History mcg-K 50 mcg-lutein 300 mcg tablet (Centrum Silver Women) albuterol sulfate 90 mcg/actuation 2 puff inhalation Q 6-8H PRN 01/23/25 07/31/25 History aerosol inhaler rosuvastatin 5 mg tablet 5 mg PO QHS 01/23/25 5 History budesonide 180 mcg/actuation 2 inh inhalation BID #1 e a 07/31/25 07/31/25 Rx breath activated powder inhaler (Pulmicort Flexhaler) Have you fallen in the past year?: No PFSH Medical History (Reviewed 07/31/25 @ 08:14 by Rupinder Mclaughlin STORE CLERK CHECKER, STORE CLERK CHECKER-C) Hypercholesterolemia SVT (supraventricular tachycardia) Encounter for screening for COVID-19 URI (upper respiratory infection) Colon polyp Obesity LYNNE (generalized anxiety disorder) Surgical History History of radiofrequency ablation procedure for cardiac arrhythmia (12/23/21) History of abdominal hysterectomy Family History Other COPD (chronic obstructive pulmonary disease) Diabetes Hypertension Social History pets and animals: Yes pets and animals: dog(s) Smoking Status: Never smoker Electronic Cigarette Use: not used alcohol intake: current alcohol intake frequency: a few times a month substance use type: does not use what type of physical activity do you participate in: none Review of Systems Resp Respiratory: Yes as per HPI Exam Const Constitutional: Positive conversant, cooperative, in no acute respiratory distress, healthy appearing, well developed, well nourished, good hygiene and obese Head Head: Yes normocephalic, Yes atraumatic and No cyanosis of lips/distal nose Eyes Eye: Positive clear conjunctiva; Negative nystagmus or scleral abnormality Ears Ear: Positive hearing normal and external ears normal Nose Nose: Yes external nose normal Mouth Mouth: Positive oral mucosae normal and good dentition Neck Neck: Positive normal visual inspection, full ROM and trachea midline Chest Wall Chest: Positive normal inspection of the chest and symmetric chest movement; Negative increased A/P diameter Resp lung sounds: Positive clear to auscultation, good air exchange, normal expiratory time and normal respiratory effort; Negative diminished lung sounds, wheezes, rhonchi or rales Cardio Cardiac: Positive regular rate, regular rhythm, S1 normal, S2 normal and normal PMI; Negative murmur GI GI: Positive normal to inspection and obese; Negative distended Genitourinary: Positive deferred Musc Musculoskeletal: Positive steady gait and ROM normal; Negative kyphosis or scoliosis Skin Pulmonary Skin Exam: Positive intact; Negative lesion, rash or ulcers Extremities Extremities: No clubbing and No cyanosis Neuro Neurologic: Yes no focal neuro deficits, Yes conversant, Yes cooperative, Yes normal cognition, Yes normal coordination, Yes normal concentration and Yes understands questions Psych Appearance: Positive grossly normal, eye contact and well kempt Mental Status: Positive mental status grossly normal Mood: Positive congruent mood Affect: Positive normal affect Coding Level of Care Code Off vis,est,level 4 Diagnoses Cough variant asthma J45.991 Gastroesophageal reflux disease, unspecified whether esophagitis present K21.9 Esophagitis presence: esophagitis presence not specified Clinical Quality Measures Falls Risk Screening/Assistive Devices Have you fallen in the past year?: No 07/31/25 0834 <Electronically signed by Rupinder sood STORE CLERK CHECKER STORE CLERK CHECKER-C> Date _ Rupinder Mclaughlin NP STORE CLERK CHECKER-C Cosigner Signature: Date (if applicable) CC: Dr. 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 Advance Directives and Living Will Power of Lan Analyst Latest Code Status on File Code Status Date Activated Date Inactivated Comments Full Code 12/17/2018 8:28 AM 12/18/2018 2:43 AM Advance Directive Response Recorded Date/ Time Advance Directives Yes December 8:53am Living Will Yes December 23 8:53am Power of Lan Analyst Yes December 23, 2021 8:53am Advance Directive Response Recorded Date/ Time Advance Directives Yes December 7:53am Living Will Yes December 23 7:53am Power of Lan Analyst Yes December 23, 2021 7:53am Advance Directive Response Recorded Date/ Time Advance Directives Yes December 8:53am Summary Purpose Family History No Family History Records Found Relationship Condition Age at Onset Recorded Date/T nikolas Not Specified Diabetes mellitus Unknown Chronic obstructive pulmonary disease Unk nown Hypertension Unknown Chief Complaint and Reason for Visit Chief Complaint COUGH/CONGESTION/SOR E THROAT Chief Complaint COUGH/CONGESTION/SOR E THROAT Chronic cough Chief Complaint Admit Date SCREENING December 05, 2024 1 2:27pm Chronic cough January 23, 2025 8:3 2am Reason for Visit Admit Date Cough January 23, 2025 8:3 2am Obesity January 23, 2025 8:3 2am Chief Complaint Admit Date SCREENING December 05, 2024 1 2:27pm Chronic cough January 23, 2025 8:3 2am R05.9 - Cough, unspecified February 06 8:05am Chief Complaint Admit Date SCREENING December 05, 2024 1 2:27pm Chronic cough January 23, 2025 8:3 2am R05.9 - Cough, unspecified February 06 8:05am EORDERS February 17, 2025 8:0 8am Chief Complaint Admit Date Chronic cough January 23, 2025 8:3 2am R05.9 - Cough, unspecified February 06 8:05am EORDERS February 17, 2025 8:0 8am 5 WK FU February 27, 2025 7:4 2am EMPLOYEE 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 March 06, 2025 12:52p m 2 M FU May 01, 2025 7:40 am Reason for Visit Admit Date Cough January 23, 2025 8:3 2am Obesity January 23, 2025 8:3 2am Cough variant asthma February 27, 2025 7: 42am Acid reflux May 01, 2025 7:40 am Cough variant asthma May 01, 2025 7:4 0am Chief Complaint Admit Date 2 M FU May 01, 2025 7:40 am 3 M FU July 31, 2025 8:05am Reason for Visit Admit Date Acid reflux May 01, 2025 7:40 am Cough variant asthma May 01, 2025 7:4 0am Acid reflux July 31, 2025 8:05am Cough variant asthma July 31 8:05am Additional Source Comments INFORMATION SOURCE (unrecogn ized section and content) DATE CREATED AUTHOR 08/28/2019 [facility] DATE CREATED AUTHOR AUTHOR'S ORGANIZ ATION 11/02/2023 [facility] DATE CREATED AUTHOR AUTHOR'S ORGANIZ ATION 09/12/2025 [facility] Goals (unrecognized section and content) Goals may be documented in a n alternate sectionGoals may be documented in an alternate sectionGoals may be documented in an alternate sectionGoals may be documented in an alternate sectionGoals may be documented in an alternate sectionGoals may be documented in an alternate sectionGoals may be documented in an alternate sectionGoals may be documented in an alternate sectionGoals may be documented in an alternate section Reason for Visit (unrecogniz ed section and content) Reason Onset Date Comments Cough 10/31/2023 Care Teams (unrecognized sec tion and content) Clinical Lab Assistant Relationship Specialty Start Date End Date Jeronimo Howell MD [facility] [place] [id number] PCP - General 04/09/18 Team Status: Active Member Role Status Dates Dr. Jeronimo Howell MD Primary Care Provider Active Team Status: Inactive Member Role Status Dates Dr. Jeronimo Howell MD Primary Care Provider, Refer ring Provider Active Chung Warren PA, PA Attending Provider Active Team Status: Inactive Member Role Status Dates Dr. Jeronimo Howell MD Primary Care Provider Active CORRINE UGALDE Attending Provider Active Team Status: Inactive Member Role Status Dates Dr. Jeronimo Howell MD Primary Care Azul spangler, Attending Provider, Referring Provider Active Team Status: Inactive Member Role Status Dates Dr. Jeronimo Howell MD Primary Care Provider Active Start: December 05, 2024 End: December 05, 2024 Dr. Jeronimo Howell MD Attending Provider Active Start: December 05, 2024 End: December 05, 2024 Dr. Jeronimo Howell MD Referring Provider Active Start: December 05, 2024 End: December 05, 2024 Team Status: Inactive Member Role Status Dates Dr. Jeronimo Howell MD Primary Care Provider Active Start: January 16, 2025 End: January 16, 2025 Dr. Jeronimo Howell MD Attending Provider Active Start: January 16, 2025 End: January 16, 2025 Dr. Jeronimo Howell MD Referring Provider Active Start: January 16, 2025 End: January 16, 2025 Team Status: Inactive Member Role Status Dates Dr. Jeronimo Howell MD Primary Care Provider Active Start: January 23, 2025 End: January 23, 2025 Dr. Jeronimo Howell MD Referring Provider Active Start: January 23, 2025 End: January 23, 2025 Rupinder Mclaughlin STORE CLERK CHECKER, STORE CLERK CHECKER-C Attending Provider Active Start: January 23, 2025 End: January 23, 2025 Team Status: Inactive Member Role Status Dates Dr. Jeronimo Howell MD Primary Care Provider Active Start: February 06, 2025 End: February 06, 2025 Rupinder Mclaughlin STORE CLERK CHECKER, STORE CLERK CHECKER-C Attending Provider Active Start: February 06, 2025 End: February 06, 2025 Rupinder Mclaughlin STORE CLERK CHECKER, STORE CLERK CHECKER-C Referring Provider Active Start: February 06, 2025 End: February 06, 2025 Team Status: Inactive Member Role Status Dates Dr. Jeronimo Howell MD Primary Care Provider Active Start: February 17, 2025 End: February 17, 2025 Rupinder Mclaughlin STORE CLERK CHECKER, STORE CLERK CHECKER-C Attending Provider Active Start: February 17, 2025 End: February 17, 2025 Rupinder Mclaughlin STORE CLERK CHECKER, STORE CLERK CHECKER-C Referring Provider Active Start: February 17, 2025 End: February 17, 2025 Team Status: Inactive Member Role Status Dates Dr. Jeronimo Howell MD Primary Care Provider Active Start: February 27, 2025 End: February 27, 2025 Dr. Jeronimo Howell MD Referring Provider Active Start: February 27, 2025 End: February 27, 2025 Rupinder Mclaughlin STORE CLERK CHECKER, STORE CLERK CHECKER-C Attending Provider Active Start: February 27, 2025 End: February 27, 2025 Team Status: Active Member Role Status Dates Employee Health Attending Provider Active Start: March 06, 2025 Team Status: Active Member Role Status Dates Dr. Jeronimo Howell MD Primary Care Provider Active Start: March 06, 2025 Health Risk Assessment Attending Provider Active Start: March 06, 2025 Team Status: Inactive Member Role Status Dates Dr. Jeronimo Howell MD Primary Care Provider Active Start: May 01, 2025 End: May 01, 2025 Dr. Jeronimo Howell MD Referring Provider Active Start: May 01, 2025 End: May 01, 2025 MERCY Servin NP Attending Provider Active Start: May 01, 2025 End: May 01, 2025 Team Status: Active Member Role/Relationship Status Dates Dr. Jeronimo Howell MD Primary care physician Activ e Team Status: Inactive Member Role/Relationship Status Dates Dr. Jeronimo Howell MD Primary care physician Activ e Start: May 01, 2025 End: May 01, 2025 Dr. Jeronimo Howell MD Referring Provider Active Start: May 01, 2025 End: May 01, 2025 MERCY Servin NP Attending physician Active Start: May 01, 2025 End: May 01, 2025 Team Status: Inactive Member Role/Relationship Status Dates Dr. Jeronimo Howell MD Primary care physician Activ e Start: July 31, 2025 End: July 31, 2025 Dr. Jeronimo Howell MD Referring Provider Active Start: July 31, 2025 End: July 31, 2025 MERCY Servin NP Attending physician Active Start: July 31, 2025 End: July 31, 2025 FOR RECORDS PERTAINING TO PATIENTS WHO ARE OR HAVE BEEN ENROLLED IN A CHEMICAL DEPENDENCY/SUBSTANCEABUSE PROGRAM, SOME INFORMATION MAY BE OMITTED. This clinical summary was aggregated from multiple sources. Caution should be exercised in using it in the provision of clinical care. This summary normalizes information from multiple sources, and as a consequence, information in this document may materially change the coding, format and clinical context of patient data. In addition, data may be omitted in some cases. CLINICAL DECISIONS SHOULD BE BASED ON THE PRIMARY CLINICAL RECORDS. [employer] provides no warranty or guarantee of the accuracy or completeness of information in this document.
--- NOTE | 2025-10-20 07:29 | HP.PCM_ITS ---
HPI - General General Date of Service: 10/20/25 HPI Narrative ALLA KIMBALL, is a 55 F who presents for EGD patient denies any change since office visit. Last visit 09/04/2025 HPI HPI: 35-year-old female presents for an EGD due to possible silent reflux. Patient states that she has had these episodes for a few years. This time started about 2 weeks ago and also happened last winter. She will have a cough, all the time. Patient has not been on any PPIs. Patient states she will also get this more frequently after eating or drinking. Patient does have some issues with constipation goes about once every 3 days. [facility] Medical History Wears contact lenses Wears glasses Alcohol use High cholesterol Non-smoker History of echocardiogram Cardiology follow-up encounter History of irregular heartbeat Hypercholesterolemia SVT (supraventricular tachycardia) Encounter for screening for COVID-19 URI (upper respiratory infection) Colon polyp Obesity LYNNE (generalized anxiety disorder) Home Medications ?Medication ?Instructions ?Recorded ?Last Taken ?Type citalopram 40 mg tablet 40 mg PO DAILY 10/30/20 Unkn own History cetirizine 10 mg tablet (Zyrtec) 10 mg PO DAILY Unknown History cholecalciferol (vitamin D3) 50 50 mcg PO DAILY Unknown History mcg (2,000 unit) capsule [id number]-tgjp-[id number] 8 mg-folic 400 1 tab PO DAILY 11/16 Unknown History mcg-K 50 mcg-lutein 300 mcg tablet (Centrum Silver Women) albuterol sulfate 90 mcg/actuation 2 puff inhalation Q 6-8H PRN 01/23/25 Unknown History aerosol inhaler shortness of breath or wheez ing rosuvastatin 5 mg tablet 5 mg PO QHS 01/23/25 Unknown History fluticasone furoate 200 1 inh inhalation QDAY #30 ea 09/26/25 Unknown Rx mcg/actuation blister powder for inhalation (Arnuity Ellipta) pantoprazole 40 mg tablet,delayed 40 mg PO DAILY #30 t abs 10/20/25 Unknown Rx release Allergy/AdvReac Type Severity Reaction Status Date / Time No Known Allergies Allergy Verified 10/20/25 07:30 Family History Other COPD (chronic obstructive pulmonary disease) Diabetes Hypertension Surgical History History of radiofrequency ablation procedure for cardiac arrhythmia (12/23/21) History of abdominal hysterectomy Social History pets and animals: Yes pets and animals: dog(s) Smoking Status: Never smoker Electronic Cigarette Use: not used alcohol intake: current alcohol intake frequency: a few times a month substance use type: does not use what type of physical activity do you participate in: none Past Medical/Surgical History Planned Operation Planned Operative Procedure(s): EGD Previous Hospitalizations/Surgeries HX Hospitalizations: No Any Problems With Anesthesia: No You/Your Family Experience Fever (Hyperthermia) With Anes: No Cholinesterase deficiency: No Cardiovascular Hx Hypertension: No Respiratory Hx Sleep Apnea: No Hx Respiratory Tract Infection/Cold (presently): No Do You Snore Loudly (louder than talking or can be heard): No Do You Often Feel Tired/ Fatigued/ Sleepy Dring Daytime?: No Has Anyone Observed You Stop Breathing During Sleep?: No Result (for STOP score): Negative Smoking Status: Never smoker Neurological Does patient have nerve stimulator: No Reproduction : No Psycho/Social Hx Anxiety: Yes Hx Depression: Yes Allergies No Known Allergies Allergy (Verified 10/20/25 07:30) Discharge Is Pt Admitted From a Senior Living, or a Mcfp: No After D/C, Where Do you Plan to Go: Return Home Physical Exam Const alert, oriented x3 and no apparent distress HEENT normocephalic and head/scalp atraumatic Resp normal respiratory effort Cardio regular rate GI soft to palpation and non-tender; Negative for non-distended Palpation: Negative for guarding Extremity no clubbing, cyanosis or edema Skin no rashes or lesions noted Neuro CN's II-XII intact bilaterally Psych mental status grossly normal Assessment & Plan Assessment/Plan (1) Cough: QUALIFIERS: Cough type: chronic Qualified Code(s): R05.3 - Chronic cough Surgery Risks - Colonoscopy I discussed with the patient the risks of the procedure: Yes Risks Include but are not Limited To: Plan for an EGD only Risks include but are not limited to: Bleeding, perforation requiring further surgery
[2025-10-20] MEDS: Lactated Ringers 1,000 ML 15 ML IV (07:33)
--- NOTE | 2025-10-20 07:57 | PCM.PRE.AN2 ---
ASA Classification* ASA Classification ASA Classification: 2 Assessment & Plan Anesthesia* Anesthesia Assessment Anesthesia Assessment: Discussed sedation and/or anesthesia options, risks, benefits, and alternatives with patient/parents/legal guardian/POA. Questions invited. The patient/parents/legal guardian/POA seems to understand and agrees to proceed with anesthesia plan. Reviewed the physical assessment, medical history, allergy history and patient home medications list prior to surgery/procedure/anesthetic and documented any changes. Performed airway and anesthesia risk assessments. Anesthesia Type Anesthesia Type: MAC History Source History Obtained from:: Patient and Chart Anesthesia Focused Assessment* Temperature: 97.8 F Pulse Rate: 77 Blood Pressure: 152/72 Respiratory Rate: 16 Pulse Ox: 99 Oxygen Delivery Method: Room Air Airway Assessment Mouth opens: 2 cm Mallampati Score: II Teeth Condition: Intact Neck Range of motion (ROM): Full ROM Labs Anesthesia Preop lab: CBC WBC, (4.4-11.0) 3.5 K/mm3 L 02/17/25, 08:12 RBC, (4.2-5.4) 4.37 M/mm3 02/17/25, 08:12 Hgb, (12.0-15.0) 13.6 g/dL 02/17/25, 08:12 Hct, (37-47) 39.7 % 02/17/25, 08:12 Plt Count, (150-450) 239 K/mm3 02/17/25, 08:12 CHEMISTRY Potassium, (3.3-5.1) 4.2 mmol/L 01/16/25, 07:57 Sodium, (133-145) 139 mmol/L 01/16/25, 07:57 BUN, (4-19) 18 mg/dL 01/16/25, 07:57 Creatinine, (0.70-1.20) 0.96 mg/dL 01/16/25, 07:57 Glucose, (70-99) 91 mg/dL 01/16/25, 07:57 TSH, (0.358-3.74) 2.16 uIU/mL 11/18/20, 09:40 COAG Pre-Assessment Diagnosis/Proposed Procedure Planned Operative Procedure(s): EGD Anesthesia History Anesthesia History - machine baster: Anesthesia History - machine baster Hx Hospitalization No 10/20/25 07:31 Any Problems With Anesthesia No 10/20/25 07:31 Cholinesterase deficiency No 10/20/25 07:31 You/Your Family Experience No 10/20/25 07:31 fever (hyperthermia) with Relationship Recent Exposure to Contagious No 10/20/25 07:30 Disease Does patient have nerve No 10/20/25 07:31 stimulator Patient instructed to have device shut off --Does patient have Pacemaker No 10/20/25 07:30 or ICD? When Was Last Pacemaker Check QUESTION #4 FULL TEXT: You/Your Family Experience fever (hyperthermia) with Anesthesia Any additional information?: No Last Oral Intake Last Oral intake: Last Oral Intake NPO since 23:00 10/20/25 07:30 Meds taken in AM with sips of water? Meds patient instructed to take am of surgery Any additional information?: No PONV PONV - machine baster: PONV - machine baster Female Yes 10/17/25 09:51 HX of Motion Sickness No 10/17/25 09:51 HX of N/V After Surgery No 10/17/25 09:51 Non-Smoker Yes 10/17/25 09:51 Duration of Surgery greater No 10/17/25 09:51 than 60 minutes Number of Risk Factors 2 10/17/25 09:51 PONV Score Moderate Risk 10/17/25 09:51 Any additional information?: No Height & Weight Height & Weight: Anesthesia: Height & Weight Height 5 ft 2 in 10/20/25 07:30 Weight: 78 kg 10/20/25 07:30 Body Mass Index (BMI) 31.4 10/20/25 07:30 Respiratory Assessment Respiratory Assessment - machine baster: Respiratory Tract Infection Hx - machine baster Hx Respiratory Tract Infection No 10/20/25 07:31 Any additional information?: No STOP Sleep Apnea STOP Sleep Apnea - machine baster: STOP Sleep Apnea - machine baster Hx Hypertension No 10/20/25 07:31 Hx Sleep Apnea No 10/20/25 07:31 CPAP BIPAP Do you snore loudly (louder No 10/20/25 07:31 than talking or can be heard Do you often feel tired/ No 10/20/25 07:31 fatigued/ sleepy during daytime? Has anyone observed you stop No 10/20/25 07:31 breathing during sleep? STOP Results Negative 10/20/25 07:31 QUESTION #5 FULL TEXT : Do you snore loudly (louder than talking or can be heard through closed doors)? 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 Specify any problems Hx of Preganancy in last 3 No 10/17/25 09:51 Months Nurse Filling Out Transfusion VCHRISTIN 10/17/25 09:51 & Questions: Date: 10/17/25 10/17/25 09:51 Time: 09:53 10/17/25 09:51 Patient unable to answer at this time (ie. confused, unrespo Any additional information?: No /Reproduction History /Reproductive History - machine baster: /Reproductive Hx- machine baster Hx Now No 10/20/25 07:31 Gestational Age (in weeks): EDC: Hx Hx Para Hx Section SAB No 10/17/25 09:51 Does the father of the baby or his family experience fever w Father of the baby Malignant Hypertension history comment Any additional information?: No Active Medications Active Medications: Current Medications Generic Name Dose Route Start Last Admin Trade Name Freq PRN Reason Stop Dose Admin Lactated Ringer's 1,000 mls @ 15 mls/hr 10/20/25 07:15 10/20/25 07:33 IV 15 mls/hr .Q48H KAREN Administration PFSH Medical History Wears contact lenses Wears glasses Alcohol use High cholesterol Non-smoker History of echocardiogram Cardiology follow-up encounter History of irregular heartbeat Hypercholesterolemia SVT (supraventricular tachycardia) Encounter for screening for COVID-19 URI (upper respiratory infection) Colon polyp Obesity LYNNE (generalized anxiety disorder) Home Medications ?Medication ?Instructions ?Recorded ?Last Taken ?Type citalopram 40 mg tablet 40 mg PO DAILY 10/30/20 Unknown History cetirizine 10 mg tablet (Zyrtec) 10 mg PO DAILY 11/16/20 Unknown History cholecalciferol (vitamin D3) 50 50 mcg PO DAILY 11/16/20 Unknown History mcg (2,000 unit) capsule mlxvhqdr-inio-nadz 8 mg-folic 400 1 tab PO DAILY 11/16/20 Unknown History mcg-K 50 mcg-lutein 300 mcg tablet (Centrum Silver Women) albuterol sulfate 90 mcg/actuation 2 puff inhalation Q6-8H PRN 01/23/25 Unknown History aerosol inhaler shortness of breath or wheezing rosuvastatin 5 mg tablet 5 mg PO QHS 01/23/25 Unknown History fluticasone furoate 200 1 inh inhalation QDAY #30 ea 09/26/25 Unknown Rx mcg/actuation blister powder for inhalation (Arnuity Ellipta) Allergy/AdvReac Type Severity Reaction Status Date / Time No Known Allergies Allergy Verified 10/20/25 07:30 Family History Other COPD (chronic obstructive pulmonary disease) Diabetes Hypertension Surgical History History of radiofrequency ablation procedure for cardiac arrhythmia (12/23/21) History of abdominal hysterectomy Social History pets and animals: Yes pets and animals: dog(s) Smoking Status: Never smoker Electronic Cigarette Use: not used alcohol intake: current alcohol intake frequency: a few times a month substance use type: does not use what type of physical activity do you participate in: none Review of Systems (Anesthesia) ROS Narrative System reviewed and no additional complaints, except as documented. Respiratory/Chest Respiratory/Chest: Reports cough Gastrointestinal Gastrointestinal: Reports heartburn Allergic/Immunologic Allergic/Immunologic: Reports asthma Physical Exam Const alert, oriented x3 and average body habitus Orientation / Consciousness: awake HEENT dentition normal Neck full ROM General: normal visual inspection Resp normal respiratory effort, normal air movement and clear to auscultation bilaterally Auscultation: clear to auscultation bilaterally Cardio regular rate, regular rhythm and no murmurs Back/Spine normal ROM Extremity full ROM Skin Rashes: no rashes Neuro oriented x3 and moves all extremities
--- NOTE | 2025-10-20 08:30 | EGD_PTH ---
PATIENT: ALLA KIMBALL LOC: EN U#:[id number] AGE/SX: 55/F ROOM: RE10/20/[address]: Dr. Estella Asif MD : [id number] BED: DIS: 10/20/2025 SPEC #: [id number] RECD: 10/20/25 09:44 STATUS: LUKE REQ #: [id number] KIRSTIN: 10/20/25 08:[address]: Estella Asif DEPT: SURGICAL PATHOLOGY RECD BY: Arsen Gallagher ENTERED: 10/20/25 13:39 SP TYPE: EGD BIOPSY ELENA DR: Dr. Jeronimo Howell MD Tissues: A - Gastric mucous membrane B - Esophagus, NOS Procedures: Immunohistochemical Stains Surgery Specimen Level IV HEADER OPERATION: EGD with biopsy PRE-OP DIAGNOSIS: Cough ADDENDUM TISSUE SUBMITTED: A- Antrum biopsy, B- GE junction biopsy ADDENDUM ADDENDUM ADDENDUM 10/22/2025 09:19 ADDENDUM 10/22/2025 09:19 ADDENDUM 10/22/2025 09:19 ADDENDUM 10/22/2025 09:19 ADDENDUM 10/22/2025 09:19 This addendum is to report the IHC for H pylori on part A: A. IHC MICROSCOPIC DIAGNOSIS A. Stomach, antrum, biopsy: - Chronic gastritis. - IHC for H pylori is pending and will be reported in an addendum. B. Esophagus, GE junction, biopsy: - Squamous mucosa with reactive changes. - Columnar mucosa negative for goblet cell metaplasia. - Negative for dysplasia. MICROSCOPIC DESCRIPTION Slides are reviewed. GROSS DESCRIPTION A. Received in fixative is one container labeled with the patient's name and designated Antrum biopsy. The specimen consists of one irregular fragment of claudio tissue that measures 0.5 cm. The specimen is totally submitted in one cassette. B. Received in fixative is one container labeled with the patient's name and designated GE junction biopsy. The specimen consists of one irregular fragment of claudio tissue that measures 0.3 cm. The specimen is totally submitted in one cassette. PR 10/20/2025 CPT:[id number] ADDENDUM ADDENDUM ADDENDUM ADDENDUM 10/22/2025 09:19 ADDENDUM 10/22/2025 09:19 ADDENDUM 10/22/2025 09:19 ADDENDUM 10/22/2025 09:19 ADDENDUM 10/22/2025 09:19 This addendum is to report the IHC for H pylori on part A: A. IHC
--- NOTE | 2025-10-20 09:33 | PCM.POST.ANE ---
Anesthesia: Postop Eval I Current Vital Signs Temperature: 97.7 F Pulse Rate: 64 Blood Pressure: 113/64 Respiratory Rate: 16 Pulse Ox: 93 Oxygen Delivery Method: Room Air Assessment Airway patent: Yes Spontaneous unlabored respirations: Yes Mental status: Asleep nausea: No Vomiting: No Anesthesia Complication: No Fluid Hydration Crystalloid volume administer (ml): 400 Total IV fluid infused: 400 Progress Note Anesthesia document: Postop Eval 1 completed: Yes
--- NOTE | 2025-10-20 09:36 | OP.EGD_ITS ---
Patient Name: Maryam Toth Procedure Date: 10/20/2025 9:13 AM Date of : 1970 Age: 55 Procedure: Upper GI endoscopy Indications: Chronic cough Providers: Estella Asif MD Referring MD: Jeronimo Howell Medicines: Monitored Anesthesia Care Patient Profile: This is a 55 year old female. Patient has symptoms of chronic cough. Complications: No immediate complications. Procedure: Pre-Anesthesia Assessment: - Prior to the procedure, a History and Physical was performed, and patient medications and allergies were reviewed. The patient's tolerance of previous anesthesia was also reviewed. The risks and benefits of the procedure and the sedation options and risks were discussed with the patient. All questions were answered, and informed consent was obtained. Prior Anticoagulants: The patient has taken no anticoagulant or antiplatelet agents. ASA Grade Assessment: Per anesthesia. After reviewing the risks and benefits, the patient was deemed in satisfactory condition to undergo the procedure. After obtaining informed consent, the endoscope was passed under direct vision. Throughout the procedure, the patient's blood pressure, pulse, and oxygen saturations were monitored continuously. The gastroscope was introduced through the mouth, and advanced to the second part of duodenum. The upper GI endoscopy was accomplished without difficulty. The patient tolerated the procedure well. Scope In: 9:19:38 AM Scope Out: 9:24:48 AM Total Procedure Duration Time 0 hours 5 minutes 10 seconds Findings: The Z-line was irregular and was found 40 cm from the incisors. Mildly erythematous mucosa without bleeding was found in the gastric antrum. Biopsies were taken with a cold forceps for histology. Biopsies were taken with a cold forceps for Helicobacter pylori cultures. Bilious fluid was found in the gastric body and in the gastric antrum. The cardia and gastric fundus were normal on retroflexion. The examined duodenum was normal. Impression: - Z-line irregular, 40 cm from the incisors. - Erythematous mucosa in the antrum. Biopsied. - Bilious gastric fluid. - Normal examined duodenum. Recommendation: - Await pathology results. - Discharge patient to home. - Resume previous diet. - Use Prilosec (omeprazole) 40 mg PO daily. - Continue present medications. Procedure Code(s): --- Professional --- 60551, Esophagogastroduodenoscopy, flexible, transoral; with biopsy, single or multiple Diagnosis Code(s): --- Professional --- K22.89, Other specified disease of esophagus K31.89, Other diseases of stomach and duodenum R05.3, Chronic cough CPT copyright 2021 [employer]. All rights reserved. The codes documented in this report are preliminary and upon it trainer review may be revised to meet current compliance requirements. MD Estella Holt MD 10/20/2025 9:36:19 AM This report has been signed electronically. Number of Addenda: 0 Note Initiated On: 10/20/2025 9:13 AM
--- NOTE | 2025-10-20 09:37 | OP.PROVAT_ITS ---
10/20/2025 Jeronimo Howell Re : Upper GI endoscopy procedure for Maryam Toth Dear Dante This procedure was performed on Monday, October 20, 2025. My impressions and recommendations are as follows: Impressions : - Z-line irregular, 40 cm from the incisors. - Erythematous mucosa in the antrum. Biopsied. - Bilious gastric fluid. - Normal examined duodenum. Recommendations : - Await pathology results. - Discharge patient to home. - Resume previous diet. - Use Prilosec (omeprazole) 40 mg PO daily. - Continue present medications. My findings are described in the full procedure note, which is enclosed. If I can be of further assistance, please feel free to contact me at Doctor phone number(s): , Work: . Sincerely, MD Estella Holt MD 10/20/2025 9:36:19 AM This report has been signed electronically.
--- NOTE | 2025-10-20 14:59 | PCM.POSTANE2 ---
Anesthesia Postop Eval I Sum Postop Eval Completion status Anesthesia document: Postop Eval 1 completed: Yes Anesthesia Postop Eval I Summary Anesthesia Postop Eval I Summary: Anesthesia Postop Eval I: Assessment Summary Airway patent Yes 10/20/25 09:33 [email or web address] Spontaneous unlabored Yes 10/20/25 09:33 [email or web address] respirations Mental status Asleep 10/20/25 09:33 [email or web address] nausea No 10/20/25 09:33 [email or web address] Vomiting No 10/20/25 09:33 [email or web address] Anesthesia Postop Eval I: Fluid Summary Crystalloid volume administer 400 10/20/25 09:33 [email or web address] (ml) Colloids volume administered ( ml) Blood Product volume administered (ml) Total IV fluid infused 400 10/20/25 09:33 [email or web address] Anesthesia Postop Eval I: Summary Notes Anesthesia Complication No 10/20/25 09:33 [email or web address] Anesthesia Complication Comment: Post-operative progress note Anesthesia: Postop Eval II Evaluation Mental status: Awake and Calm Pain Level: 0 nausea: No Vomiting: No Complications Anesthesia Complication: No
== END 2025-10-20 10:16 | disposition home or self-care (01) ==
LOC: EN 07:06 → AC 07:08
PROVIDERS: PCP Family Medicine; Referring Provider Family Medicine; Visit Provider Surgery
PROC: 0DJ08ZZ Inspection of Upper Intestinal Tract, Via Natural or Artificial Opening Endoscopic (ICD-10-PCS; CPT 43235; principal; 2025-10-20 08:25)
DX: K29.50 Unspecified chronic gastritis without bleeding (principal); R05.3 Chronic cough; E78.00 Pure hypercholesterolemia, unspecified; Z79.899 Other long term (current) drug therapy
CPT/HCPCS: 43239; 88305; 88342; J2405